=== PATIENT | female | born 1955 | race Caucasian/White ===

== ENCOUNTER → 2020-09-05 10:58 | Outpatient (BNVA) | payer MEDICARE, BC, SELFPAY | PROVIDERS: Family Provider Internal Medicine; PCP Internal Medicine; Visit Provider Internal Medicine Rheumatology | DX: M45.9 Ankylosing spondylitis of unspecified sites in spine (principal); M19.90 Unspecified osteoarthritis, unspecified site; Z11.59 Encounter for screening for other viral diseases; Z11.1 Encounter for screening for respiratory tuberculosis; Z79.899 Other long term (current) drug therapy; M46.90 Unspecified inflammatory spondylopathy, site unspecified | CPT/HCPCS: 36415; 71046; 72040; 72170; 73130; 73630; 80076; 82306; 82565; 85025; 85651; 86140; 86431; 86480; 86704; 86803; 86812; 87340; 99204 ==

== ENCOUNTER 2020-09-05 13:18 | Outpatient (CLI) | payer MEDICARE, BC, SELFPAY ==
--- NOTE | 2020-09-05 13:29 | XR_ITS ---
WS: [id number] Chest 2 views, 09/05/2020 Clinical Data: Z79.899 - Other terminal carman (current) drug therapy Comparison: PA and lateral chest, 04/19/2008. Findings: No nodules, masses or effusions are seen. The heart is normal. The pulmonary vascularity is not increased. No pneumonia or pneumothorax is seen. The aortic arch and descending aorta show minim al tortuosity. XR/XR chest 2V* [id number] Impression: Atherosclerosis.
--- NOTE | 2020-09-05 13:29 | XR_ITS ---
WS: [id number] Cervical spine, 4 views, 09/05/2020 Clinical Data: Z79.899 - Other halfway (current) drug therapy Comparison: None. Findings: No compression fractures are seen. There is degenerative disc narrowing at C5-C6 with anter ior osteophyte formation. No subluxation is seen. There is no prevertebral soft tissue swelling. The odontoid is unremarkable. The soft tissues of the neck and the lung apices are normal. XR/XR cervical spine 3V* [id number] Impression: Degenerative disc narrowing with osteophytes at C5-C6.
--- NOTE | 2020-09-05 13:29 | XR_ITS ---
WS: [id number] Pelvis, AP view, 09/05/2020 Clinical Data: Z79.899 - Other correction (current) drug therapy Comparison: None. Findings: No fractures or dislocations are seen. The SI joints and pubic symphysis are intact. The soft tissues are not remarkable. The hips are normal. The bladder is partly full. There is fecal material in the ascending colon and t he sigmoid colon. XR/XR pelvis 1-2V* 03915 Impression: Negative pelvis.
--- NOTE | 2020-09-05 13:29 | XR_ITS ---
WS: [id number] Right hand, 3 views, 09/05/2020 Clinical Data: Z79.899 - Other longterm (current) drug therapy Comparison: None. Findings: No fractures or dislocations are seen. The soft tissues are unremarkable. There is osteoa rthritis at the base of the right first metacarpal. There is osteoarthritis at the right hand first I P joint. No periarticular demineralization or calcifications are seen. XR/XR hand RT min 3V* [id number] Impression: Osteoarthritis of the base of the right first metacarpal and right first IP felipa turcios.
--- NOTE | 2020-09-05 13:29 | XR_ITS ---
WS: [id number] Right foot, 3 views, 09/05/2020 Clinical Data: Z79.899 - Other longterm (current) drug therapy Comparison: None. Findings: No fractures or dislocations are seen. No bone destruction or erosion is noted. There is a small buni on at the head of the right first metatarsal. No periarticular demineralization or calcifications are seen. There is an Achilles spur. XR/XR foot RT min 3V* [id number] Impression: Small bunion at the head of right first metatarsal.
--- NOTE | 2020-09-05 13:29 | XR_ITS ---
WS: [id number] Left hand, 3 views, 09/05/2020 Clinical Data: Z79.899 - Other custodial (current) drug therapy Comparison: Left hand, 10/24/2017. Findings: No fractures or dislocations are seen. The soft tissues are unremarkable. There is osteoarthritic aiyana nge at the base of the left first metacarpal.No periarticular demineralization or calcifications are seen. XR/XR hand LT min 3V* [id number] Impression: Osteoarthritis at the base of the left first metacarpal.
[2020-09-05 14:18] LABS: Basophils # 0.1 10^3/uL (0.0-0.1); Basophils % 0.9 %; Eosinophils # 0.1 10^3/uL (0.0-0.8); Eosinophils % 1.4 %; Hematocrit 44.2 % (37.0-47.0); Hemoglobin 14.4 g/dL (11.5-15.3); Lymphocytes # 3.6 10^3/uL (0.8-4.8); Lymphocytes % 41.1 %; Mean Corpuscular HGB Conc 32.6 g/dL (30.0-36.0); Mean Corpuscular Hemoglobin 30.5 pg (28.0-34.0); Mean Corpuscular Volume 93.6 fL (81-99); Mean Platelet Volume 10.2 fL (7.4-10.4); Monocytes # 0.6 10^3/uL (0.2-0.9); Monocytes % 6.6 %; Neutrophils # 4.33 10^3/uL (1.8-7.7); Neutrophils % 49.7 %; Nucleated Red Blood Cells % 0 %; Platelet Count 302 10^3/cmm (130-400); Red Blood Count 4.72 10^6/uL (4.1-5.3); Red Cell Distribution Width 12.7 % (12.1-15.1); White Blood Count 8.7 10^3/uL (4.0-10.0)
[2020-09-05 14:35] LABS: 25 Hydroxy Vitamin D 33 ng/mL (30-100); Alanine Aminotransferase 32 U/L (0-33); Albumin Level 4.4 g/dL (3.5-5.2); Alkaline Phosphatase 97 IU/L (35-105); Aspartate Amino Transferase 25 U/L (0-32); C Reactive Protein 3.2 mg/L (0.0-4.9); Globulin 2.6 g/dL (1.3-4.6); Glomerular Filtration Rate 83.7 mL/min (90-130); Total Bilirubin 0.3 mg/dL (0.15-1.2)
[2020-09-05 14:56] LABS: Hepatitis B Core AB, Total Non-Reactive (Nonreactive); Hepatitis B Surface Antigen Non-Reactive (Nonreactive); Hepatitis C Virus Antibody Non-Reactive (Nonreactive)
[2020-09-05 15:01] LABS: Erythrocyte Sedimentation Rate 18 mm/hr (0-15)
[2020-09-06 12:33] LABS: Cyclic Citrullinated Peptide <16 UNITS
[2020-09-08 16:08] LABS: HLA-B27 POSITIVE (NEGATIVE)
[2020-09-17 09:26] LABS: Quantiferon Mitogen 9.68
[2020-09-17 09:27] LABS: Quantiferon Nil 0.04; Quantiferon Plus TB1 0.59; Quantiferon TB Gold POSITIVE
== END 2020-09-05 13:19 | disposition home or self-care (01) ==
PROVIDERS: PCP Internal Medicine; Visit Provider Internal Medicine Rheumatology
DX: M02.30 Reiter's disease, unspecified site (principal); Z79.899 Other long term (current) drug therapy; Z11.59 Encounter for screening for other viral diseases
CPT/HCPCS: 36415; 71046; 72040; 72170; 73130; 73630; 80076; 82306; 82565; 85025; 85651; 86140; 86431; 86480; 86704; 86803; 86812; 87340

== ENCOUNTER 2020-09-23 16:11 | Outpatient (CLI) | payer MEDICARE, BC, SELFPAY ==
--- NOTE | 2020-09-23 16:23 | XRR_ITS ---
PROCEDURE INFORMATION: Exam: XR Chest Exam date and time: 09/23/2020 4:31 PM Age: 64 years old Clinical indication: Abnormal findings; Positive tb skin testing; Additional info: R76.11 - nonspecific reaction to tuberculin skin test without active tuberculosis TECHNIQUE: Imaging protocol: XR of the chest Views: 2 views. Total images: 2 COMPARISON: CR XR chest 2V* [id number] 09/05/2020 1:54 PM FINDINGS: Lungs: No visible active interstitial or alveolar airspace disease. No radiographic evidence of active TB. Pleural spaces: Unremarkable. No pleural effusion. No pneumothorax. Heart/Mediastinum: Unremarkable. No cardiomegaly. Bones/joints: Unremarkable. XR/XR chest 2V* [id number] IMPRESSION: No radiographic evidence of active cardiopulmonary process.
== END 2020-09-23 16:12 | disposition home or self-care (01) ==
LOC: RAD 16:18
PROVIDERS: PCP Internal Medicine; Visit Provider Internal Medicine
DX: R76.11 Nonspecific reaction to tuberculin skin test without active tuberculosis (principal)
CPT/HCPCS: 71046

== ENCOUNTER → 2021-01-02 14:08 | Outpatient (BNVA) | payer MEDICARE, BC, SELFPAY | PROVIDERS: PCP Internal Medicine; Visit Provider Nurse Practitioner Family | DX: Z20.822 Contact with and (suspected) exposure to COVID-19 (principal); R50.9 Fever, unspecified; J06.9 Acute upper respiratory infection, unspecified | CPT/HCPCS: 87426 ==

== ENCOUNTER 2021-01-04 02:32 | Inpatient (IN) | payer MEDICARE, BC, SELFPAY ==
[2021-01-04] VITALS (14 sets, daily range): BP systolic 115–164; BP diastolic 64–104; PULSE 78–119; RESP 18–22; TEMP 37.2–38.4; O2SAT 91–95; BMI 33.4
--- NOTE | 2021-01-04 03:06 | XRR_ITS ---
PROCEDURE INFORMATION: Exam: XR Chest Exam date and time: 01/04/2021 3:06 AM Age: 65 years old Clinical indication: Cough and fever and shortness of breath; Patient HX: Cough, SOB, and fever. TECHNIQUE: Imaging protocol: XR of the chest. Views: 1 view. COMPARISON: CR XR chest 2V* [id number] 09/23/2020 4:39 PM FINDINGS: Lungs: There are increased interstitial markings seen in the mid and lower hemithoraces bilaterally, findings suggesting a bilateral interstitial pneumonia. Pleural spaces: Unremarkable. No pleural effusion. No pneumothorax. Heart/Mediastinum: Unremarkable. No cardiomegaly. Bones/joints: Unremarkable. XR/XR chest 1V portable [id number] IMPRESSION: Increased interstitial markings seen in the lower hemithoraces bilaterally, findings suggesting a bilateral interstitial pneumonia.
--- NOTE | 2021-01-04 03:06 | ECG_ITS ---
[facility] Test Date: 2021-01-04 Pat Name: Beatriz Cevallos Department: Room: Gender: Female It Systems Engineer: : 1955 Requested By: Raphael Coates Order Number: [id number] Shae MD: Kavin Garcia M.D. Measurements Intervals [place] Rate: 114 P: 53 [place]: 112 QRS: 73 QRSD: 90 T: 23 QT: 314 QTc: 433 Interpretive Statements SINUS TACHYCARDIA WITH SHORT [place] INTERVAL No previous ECG available for comparison Electronically Signed On 01-05-2021 17:15:36 CDT by Kavin Garcia M.D. [email or web address] specialty [id number]
--- NOTE | 2021-01-04 03:14 | ED_ITS ---
HPI - COVID General: Chief Complaint: COVID symptoms Stated Complaint: Coughing\Fever\Diar\Dizzy\Ringing in Ears Time Seen by Provider: 01/04/21 02:36 Source: patient Mode of arrival: ambulatory Limitations: no limitations Triage information: Has fever, cough or shortness of breath . No known COVID + exposure last 14 days History of Present Illness: HPI Narrative: 65-year-old female states that over the last 4 to 5 days has been having body aches cough dyspnea diarrhea and abdominal pain. States she is also had fevers and is febrile here at 101. She states she was seen 2 days ago and started on Levaquin and steroids for an upper respiratory infection. She had a negative Covid test at that time. She states that she has been feeling worse since then though. She denies any vomiting. She states that she has has full body aches and her fevers just keep returning. She did have a Covid vaccine has had no known sick contacts. COVID 19 common symptoms: positive fever(s), chills, non-productive cough, body aches and diarrhea; negative headache(s) or throat pain COVID 19 other sytmptoms: negative chest pain COVID Results: SARS-CoV-2 Antigen (Rapid) Negative (Negative) 01/04/21 03:30 01/04/21 Review of Systems Const: Reports: fever(s), chills and body aches Eyes: Denies: blurry vision or eye discomfort ENMT: Denies: throat pain or dental pain Card: Denies: chest pain Resp: Reports: non-productive cough GI: Reports: abdominal pain and diarrhea : Denies: dysuria Musc: Denies: neck pain or back pain Skin/Breast: Denies: rash Neuro: Denies: headache(s) Psych: Denies: depression Sarbjit/Lymph: Denies: easy bruising All/Imm: Denies: urticaria PFSH ED PFSH: Medical History Abnormal glucose level Axial spondyloarthritis Chronic elbow pain Chronic osteoarthritis Fibromyalgia GERD (gastroesophageal reflux disease) High risk medication use High risk medication use Hyperlipidemia IBS (irritable bowel syndrome) Immunization counseling Inflammatory arthritis Insulin resistance Joint pain Reactive arthritis Omero's disease Sciatica, right side Surgical History S/P cholecystectomy S/P hysterectomy Family History Father Diabetes Mother Diabetes Cancer Other Arthritis Hypertension Lung disease Rheumatoid arthritis Denies family history of Lupus Social History Smoking and tobacco status: never smoked Second hand smoke exposure: No Alcohol intake: current Alcohol intake frequency: holidays/special occasions only Physical Exam Const: COMMON NORMALS: no acute distress, patient oriented x3 and healthy appearing HENMT: COMMON NORMALS: normocephalic and atraumatic HEAD & SCALP: normocephalic and atraumatic Eye: COMMON NORMALS: Equal, round and reactive pupils present and EOMs intact bilaterally PUPIL: Yes Equal, round and reactive pupils present Neck/C-Spine: COMMON NORMALS: full ROM and supple Chest: COMMONS NORMALS: normal inspection of the chest and normal palpation of entire chest wall Resp: COMMON NORMALS: normal respiratory effort, No retractions, No use of accessory muscles and clear to auscultation bilaterally AUSCULTATION: clear to auscultation bilaterally Cardio: COMMON NORMALS: regular rhythm and No murmurs present (Cardio) RATE: tachycardic RHYTHM: regular rhythm GI: COMMON NORMALS: Normal to inspection, nondistended, normoactive bowel sounds present, Soft to palpation, non-tender and no masses PALPATION: Yes Soft to palpation Extremity: COMMON NORMALS: normal to inspection and full ROM Neuro: COMMON NORMALS: patient oriented x3, moves all extremities and no focal motor deficits Psych: COMMON NORMALS: mental status grossly normal, Normal thought process present and cooperative THOUGHT PROCESS: Normal thought process present Skin: COMMON NORMALS: no rashes or lesions noted and no wounds GENERAL SKIN EXAM: no rashes or lesions noted Course Vital Signs: Vital signs: Vital Signs Temperature 100.6 F H 01/04/21 04:29 Pulse Rate 97 01/04/21 04:29 Respiratory Rate 19 H 01/04/21 04:29 Blood Pressure 134/94 01/04/21 04:29 Pulse Oximetry 94 01/04/21 04:29 MDM - COVID MDM Narrative: Medical decision making narrative: Patient presents here with fever along with cough. Her CT scan showed bilateral lower lobe pneumonia along with her chest x-ray. Her Covid is negative again. Patient has been on outpatient antibiotics with no improvement. She states that she feels extremely weak. She states she feels like she cannot go home at this time due to her weakness. Spoke to hospitalist will admit for observation for more fluid ministration IV antibiotics. Lab Data: Labs: Lab Results 01/04/21 01/04/21 01/04/21 Range/Units 03:10 03:10 03:10 WBC 10.2 H (4.0-10.0) 10^3/ uL RBC 4.86 (4.1-5.3) 10^6/u L Hgb 14.6 (11.5-15.3) g/dL Hct 46.0 (37.0-47.0) % MCV 94.7 (81-99) fL MCH 30.0 (28.0-34.0) pg MCHC 31.7 (30.0-36.0) g/dL RDW 12.9 (12.1-15.1) % Plt Count 222 (130-400) 10^3/c mm MPV 10.5 H (7.4-10.4) fL Neut % (Auto) 71.2 % Lymph % (Auto) 22.2 % Barrow % (Auto) 5.5 % Eos % (Auto) 0.1 % Baso % (Auto) 0.2 % Neut # (Auto) 7.27 (1.8-7.7) 10^3/u L Lymph # (Auto) 2.3 (0.8-4.8) 10^3/u L B[place] # (Auto) 0.6 (0.2-0.9) 10^3/u L Eos # (Auto) 0.0 (0.0-0.8) 10^3/u L Baso # (Auto) 0.0 (0.0-0.1) 10^3/u L Nucleated RBC % (a uto) 0 % Nucleated RBCs # 0.0 /100WBC Sodium 138 (136-145) mmol/L Potassium 4.0 (3.5-5.1) mmol/L Chloride 102 (98-107) mmol/L Carbon Dioxide 23 (22-29) mmol/L Anion Gap 17.0 (5-19) BUN 12 (8-23) mg/dL Creatinine 0.8 (0.5-0.9) mg/dL GFR Calculation 71.5 L (90-130) mL/min Glucose 109 (65-115) mg/dL Calculated Osmolal ity 286 (285-295) mOsm/k g Lactic Acid 0.7 (0.5-2.2) mmol/L Calcium 9.1 (8.5-10.5) mg/dL Total Bilirubin 0.3 (0.15-1.2) mg/dL AST 19 (0-32) U/L ALT 25 (0-33) U/L Alkaline Phosphata se 106 H (35-105) IU/L C-Reactive Protein 32.7 H (0.0-4.9) mg/L NT-Pro-B Natriuret Pep 48 (0-125) pg/mL Total Protein 6.2 L (6.6-8.7) g/dL Albumin 4.1 (3.5-5.2) g/dL Globulin 2.1 (1.3-4.6) g/dL Urine Color (Yellow) Urine Appearance (CLEAR) Urine pH (5-7) Ur Specific Gravit y (1.005-1.030) Urine Protein (Negative) Urine Glucose (UA) (Normal) Urine Ketones (Negative) Urine Blood (Negative) Urine Nitrate (Negative) Urine Bilirubin (Negative) Urine Urobilinogen (Negative) mg/dL Ur Leukocyte Kathia ase (Negative) Urine RBC (0-2) /hpf Urine WBC (0-5) /hpf Ur Squamous Epith Cells (0-5) /hpf Amorphous Sediment Urine Bacteria (NONE) /hpf Urine Mucus /hpf SARS-CoV-2 Ag (Rap id) (Negative) 01/04/21 01/04/21 Range/Units 03:30 03:30 WBC (4.0-10.0) 10^3/ uL RBC (4.1-5.3) 10^6/u L Hgb (11.5-15.3) g/dL Hct (37.0-47.0) % MCV (81-99) fL MCH (28.0-34.0) pg MCHC (30.0-36.0) g/dL RDW (12.1-15.1) % Plt Count (130-400) 10^3/c mm MPV (7.4-10.4) fL Neut % (Auto) % Lymph % (Auto) % Barrow % (Auto) % Eos % (Auto) % Baso % (Auto) % Neut # (Auto) (1.8-7.7) 10^3/u L Lymph # (Auto) (0.8-4.8) 10^3/u L Barrow # (Auto) (0.2-0.9) 10^3/u L Eos # (Auto) (0.0-0.8) 10^3/u L Baso # (Auto) (0.0-0.1) 10^3/u L Nucleated RBC % (a uto) % Nucleated RBCs # /100WBC Sodium (136-145) mmol/L Potassium (3.5-5.1) mmol/L Chloride (98-107) mmol/L Carbon Dioxide (22-29) mmol/L Anion Gap (5-19) BUN (8-23) mg/dL Creatinine (0.5-0.9) mg/dL GFR Calculation (90-130) mL/min Glucose (65-115) mg/dL Calculated Osmolal ity (285-295) mOsm/k g Lactic Acid (0.5-2.2) mmol/L Calcium (8.5-10.5) mg/dL Total Bilirubin (0.15-1.2) mg/dL AST (0-32) U/L ALT (0-33) U/L Alkaline Phosphata se (35-105) IU/L C-Reactive Protein (0.0-4.9) mg/L NT-Pro-B Natriuret Pep (0-125) pg/mL Total Protein (6.6-8.7) g/dL Albumin (3.5-5.2) g/dL Globulin (1.3-4.6) g/dL Urine Color Yellow (Yellow) Urine Appearance Clear (CLEAR) Urine pH 5 (5-7) Ur Specific Gravit y 1.020 (1.005-1.030) Urine Protein Trace (Negative) Urine Glucose (UA) Norm (Normal) Urine Ketones 1+ H (Negative) Urine Blood Neg (Negative) Urine Nitrate Negative (Negative) Urine Bilirubin Neg (Negative) Urine Urobilinogen 1 H (Negative) mg/dL Ur Leukocyte Kathia ase Negative (Negative) Urine RBC 0-4 H (0-2) /hpf Urine WBC 0-4 H (0-5) /hpf Ur Squamous Epith Cells 25-40 H (0-5) /hpf Amorphous Sediment Not Reportable Urine Bacteria 1+ H (NONE) /hpf Urine Mucus 3+ /hpf SARS-CoV-2 Ag (Rap id) Negative (Negative) Imaging Data: CXR: Attestation: I personally reviewed and interpreted this imaging study as follows: Radiologist's impression: [place] [address] XRay Report Signed Patient: Beatriz Cevallos Unit #: [id number] : 1955 Age/Sex: 65 / F ADM Date: 01/04/21 Loc: ER Room/Bed: Attending Dr: Ordering Provider/Ordering MD: Raphael Coates MD Date of Service: 01/04/21 Procedure(s): XR chest 1V portable [id number] Accession Number(s): [id number] Report Number: [id number] PROCEDURE INFORMATION: Exam: XR Chest Exam date and time: 01/04/2021 3:06 AM Age: 65 years old Clinical indication: Cough and fever and shortness of breath; Patient HX: Cough, SOB, and fever. TECHNIQUE: Imaging protocol: XR of the chest. Views: 1 view. COMPARISON: CR XR chest 2V* [id number] 09/23/2020 4:39 PM FINDINGS: Lungs: There are increased interstitial markings seen in the mid and lower hemithoraces bilaterally, findings suggesting a bilateral interstitial pneumonia. Pleural spaces: Unremarkable. No pleural effusion. No pneumothorax. Heart/Mediastinum: Unremarkable. No cardiomegaly. Bones/joints: Unremarkable. XR/XR chest 1V portable [id number] IMPRESSION: Increased interstitial markings seen in the lower hemithoraces bilaterally, findings suggesting a bilateral interstitial pneumonia. CT Abd/Pel: Radiologist's impression: [address] [place] [address] CT Scan Report Signed Patient: Beatriz Cevallos Unit #: [id number] : 1955 Age/Sex: 65 / F ADM Date: 01/04/21 Loc: ER Room/Bed: Attending Dr: Ordering Provider/Ordering MD: Raphael Coates MD Date of Service: 01/04/21 Procedure(s): CT abdomen pelvis w con* [id number] Accession Number(s): [id number] Report Number: [id number] PROCEDURE INFORMATION: Exam: CT Abdomen And Pelvis With Contrast Exam date and time: 01/04/2021 4:00 AM Age: 65 years old Clinical indication: Abdominal pain; Prior surgery; Surgery type: Gb; Patient HX: Diffuse abd pain. Positve bacteria on ua. TECHNIQUE: Imaging protocol: Computed tomography of the abdomen and pelvis with contrast. Radiation optimization: All CT scans at this facility use at least one of these dose optimization techniques: automated exposure control; mA and/or kV adjustment per patient size (includes targeted exams where dose is matched to clinical indication); or iterative reconstruction. Contrast material: OMNI 300; Contrast volume: 95 ml; Contrast route: INTRAVENOUS (IV); COMPARISON: CR XR pelvis 1-2V* [id number] 09/05/2020 2:29 PM RADIATION DOSE METRICS: Total DLP (mGy-cm): 1805.59 FINDINGS: Lungs: There are patchy peripheral ground-glass opacities present within the visualized hemithoraces, findings suggesting a bilateral patchy interstitial pneumonia. Liver: There is mild hypoattenuation of the hepatic parenchyma compatible with fatty infiltration. Gallbladder and bile ducts: Status post cholecystectomy. Pancreas: Normal. No ductal dilation. Spleen: Normal. No splenomegaly. Adrenal glands: Normal. No mass. Kidneys and ureters: Normal. No hydronephrosis. Stomach and bowel: Diverticula present the descending and sigmoid colon. There are no inflammatory changes present to suggest diverticulitis. Appendix: No evidence of appendicitis. Intraperitoneal space: Unremarkable. No free air. No significant fluid collection. Vasculature: Unremarkable. No abdominal aortic aneurysm. Lymph nodes: Unremarkable. No enlarged lymph nodes. Urinary bladder: There is some subtle haziness seen along the serosal margin of bladder, findings that could represent mild inflammatory changes and cystitis although the bladder is nondistended. Reproductive: There is a 3.3 x 2.1 x 3.6 cm hypoattenuation cystic mass seen along the left pelvic sidewall likely representing a benign left ovarian cyst. Status post hysterectomy. Bones/joints: Unremarkable. No acute fracture. Soft tissues: Unremarkable. CT/CT abdomen pelvis w con* [id number] IMPRESSION: 1. There are no acute abdominal findings. 2. Fatty infiltration of the liver 3. Subtle haziness seen along the serosal margin of the bladder could represent mild inflammatory changes and cystitis although the bladder is nondistended. 4. Diverticulosis of the descending and sigmoid colon 5. Benign cystic mass within the left ovary measuring up to 3.6 cm. No further workup needed. 6. Patchy peripheral ground-glass opacities present in the visualized hemithoraces, findings that suggest a bilateral patchy interstitial pneumonia.Commonly reported imaging features of COVID-19 pneumonia are present. Other processes such as influenza pneumonia and organizing pneumonia, as can be seen with drug toxicity and connective tissue disease, can cause a similar imaging pattern. (Reference: Pio) REFERENCES: Pio Montero, et al., Radiological Society of [place] Expert Consensus Statement on Reporting Chest CT Findings Related to COVID-19. Endorsed by the Society of Thoracic Radiology, the [place] [employer], and RSNA. Published September 20, 2019. Radiation Dose CTDIVOL = (mGy): DLP = 1805.59 (mGy-cm) Dictated By: Gildardo Means MD Signed By: Gildardo Means MD Signed Date/Time: 01/04/21 0501 EKG Data: EKG 1: Attestation: I personally reviewed and interpreted this EKG as follows: EKG interpretation date: 01/04/21 EKG interpretation time: 03:29 Interpretation: Sinus tachycardia heart rate [address] or T wave abnormalities QRS 90 QTC 381 COVID Results: SARS-CoV-2 Antigen (Rapid) Negative (Negative) 01/04/21 03:30 01/04/21 Discharge Plan Discharge Patient Disposition: Placed in Observation Clinical Impression: Pneumonia Qualifiers: Pneumonia type: due to unspecified organism Laterality: bilateral Lung location: lower lobe of lung Qualified Code(s): J18.9 - Pneumonia, unspecified organism Coding Level of Care Code ED [employer] [facility] for [facility] Fwd Exam Comprehensive
[2021-01-04 03:19] LABS: Basophils % 0.2 %; Eosinophils % 0.1 %; Hemoglobin 14.6 g/dL (11.5-15.3); Lymphocytes # 2.3 10^3/uL (0.8-4.8); Lymphocytes % 22.2 %; Mean Corpuscular HGB Conc 31.7 g/dL (30.0-36.0); Mean Corpuscular Volume 94.7 fL (81-99); Mean Platelet Volume 10.5 fL (7.4-10.4); Monocytes # 0.6 10^3/uL (0.2-0.9); Monocytes % 5.5 %; Neutrophils # 7.27 10^3/uL (1.8-7.7); Neutrophils % 71.2 %; Nucleated Red Blood Cells % 0 %; Platelet Count 222 10^3/cmm (130-400); Red Blood Count 4.86 10^6/uL (4.1-5.3); Red Cell Distribution Width 12.9 % (12.1-15.1); White Blood Count 10.2 10^3/uL (4.0-10.0)
[2021-01-04] MEDS: sodium chloride 0.9% 1,000 ML 999 ML IV ×2 (03:27→04:30)
[2021-01-04] MEDS: acetaminophen 325 mg Tablet 650 MG PO ×2 (03:27→16:20)
[2021-01-04 03:37] LABS: Add Urine Microscopic? YES; Bilirubin Urine Neg (Negative); Blood Urine Neg (Negative); Glucose Urine UA Norm (Normal); Ketones Urine 1+ (Negative); Leukocyte Esterase Urine Negative (Negative); Nitrate Urine Negative (Negative); Protein Urine Trace (Negative); Urine Appearance Clear (CLEAR); Urine Color Yellow (Yellow); Urobilinogen Urine 1 mg/dL (Negative); pH Urine 5 (5-7)
[2021-01-04 03:41] LABS: Lactic Sepsis W/Reflex 0.7 mmol/L (0.5-2.2)
[2021-01-04 03:42] LABS: Bacteria Urine 1+ /hpf; Mucus Urine 3+ /hpf; RBC Urine 0-4 /hpf (0-2); Squamous Epithelial Cell Urine 25-40 /hpf (0-5); WBC Urine 0-4 /hpf (0-5)
[2021-01-04 03:43] LABS: Add Urine Culture? No
[2021-01-04 03:47] LABS: Alanine Aminotransferase 25 U/L (0-33); Albumin Level 4.1 g/dL (3.5-5.2); Alkaline Phosphatase 106 IU/L (35-105); Aspartate Amino Transferase 19 U/L (0-32); Blood Urea Nitrogen 12 mg/dL (8-23); C Reactive Protein 32.7 mg/L (0.0-4.9); Calcium 9.1 mg/dL (8.5-10.5); Carbon Dioxide 23 mmol/L (22-29); Chloride 102 mmol/L (98-107); Creatinine Clr Calc Pharmacy 84.3018; Globulin 2.1 g/dL (1.3-4.6); Glomerular Filtration Rate 71.5 mL/min (90-130); Glucose 109 mg/dL (65-115); NT Pro B Type Natriuretic Pept 48 pg/mL (0-125); Osmolality Calculated 286 mOsm/kg (285-295); Sodium 138 mmol/L (136-145); Total Bilirubin 0.3 mg/dL (0.15-1.2); Total Protein 6.2 g/dL (6.6-8.7)
[2021-01-04 03:53] LABS: SARS Covid-2 Antigen Negative (Negative)
--- NOTE | 2021-01-04 04:00 | CTR_ITS ---
PROCEDURE INFORMATION: Exam: CT Abdomen And Pelvis With Contrast Exam date and time: 01/04/2021 4:00 AM Age: 65 years old Clinical indication: Abdominal pain; Prior surgery; Surgery type: Gb; Patient HX: Diffuse abd pain. Positve bacteria on ua. TECHNIQUE: Imaging protocol: Computed tomography of the abdomen and pelvis with contrast. Radiation optimization: All CT scans at this facility use at least one of these dose optimization techniques: automated exposure control; mA and/or kV adjustment per patient size (includes targeted exams where dose is matched to clinical indication); or iterative reconstruction. Contrast material: OMNI 300; Contrast volume: 95 ml; Contrast route: INTRAVENOUS (IV); COMPARISON: CR XR pelvis 1-2V* [id number] 09/05/2020 2:29 PM RADIATION DOSE METRICS: Total DLP (mGy-cm): 1805.59 FINDINGS: Lungs: There are patchy peripheral ground-glass opacities present within the visualized hemithoraces, findings suggesting a bilateral patchy interstitial pneumonia. Liver: There is mild hypoattenuation of the hepatic parenchyma compatible with fatty infiltration. Gallbladder and bile ducts: Status post cholecystectomy. Pancreas: Normal. No ductal dilation. Spleen: Normal. No splenomegaly. Adrenal glands: Normal. No mass. Kidneys and ureters: Normal. No hydronephrosis. Stomach and bowel: Diverticula present the descending and sigmoid colon. There are no inflammatory changes present to suggest diverticulitis. Appendix: No evidence of appendicitis. Intraperitoneal space: Unremarkable. No free air. No significant fluid collection. Vasculature: Unremarkable. No abdominal aortic aneurysm. Lymph nodes: Unremarkable. No enlarged lymph nodes. Urinary bladder: There is some subtle haziness seen along the serosal margin of bladder, findings that could represent mild inflammatory changes and cystitis although the bladder is nondistended. Reproductive: There is a 3.3 x 2.1 x 3.6 cm hypoattenuation cystic mass seen along the left pelvic sidewall likely representing a benign left ovarian cyst. Status post hysterectomy. Bones/joints: Unremarkable. No acute fracture. Soft tissues: Unremarkable. CT/CT abdomen pelvis w con* [id number] IMPRESSION: 1. There are no acute abdominal findings. 2. Fatty infiltration of the liver 3. Subtle haziness seen along the serosal margin of the bladder could represent mild inflammatory changes and cystitis although the bladder is nondistended. 4. Diverticulosis of the descending and sigmoid colon 5. Benign cystic mass within the left ovary measuring up to 3.6 cm. No further workup needed. 6. Patchy peripheral ground-glass opacities present in the visualized hemithoraces, findings that suggest a bilateral patchy interstitial pneumonia.Commonly reported imaging features of COVID-19 pneumonia are present. Other processes such as influenza pneumonia and organizing pneumonia, as can be seen with drug toxicity and connective tissue disease, can cause a similar imaging pattern. (Reference: Pio) REFERENCES: Pio Montero, et al., Radiological Society of [place] Expert Consensus Statement on Reporting Chest CT Findings Related to COVID-19. Endorsed by the Society of Thoracic Radiology, the [place] [employer], and RSNA. Published September 20, 2019. Radiation Dose CTDIVOL = (mGy): DLP = 1805.59 (mGy-cm)
[2021-01-04] MEDS: iohexol 300 mg/mL 100 mL Btl IV (04:20)
[2021-01-04] MEDS: levofloxacin-dextrose 5 % 750 MG/150 ML PREMIX 100 MG IV (05:21)
--- NOTE | 2021-01-04 07:28 | PM.HP ---
Providers/Chief Complaint Admitting Physician: Paige Beach MD Primary Care Provider: Derick Cevallos MD Chief Complaint: Coughing\Fever\Diar\Dizzy\Ringing in Ears History of Present Illness Beatriz Cevallos is a 65 year old female with persistent fever and malaise. She has not felt well for about a week. She had traveled to [place] and her symptoms started. She has had cough, runny nose, earache, dizziness and fever. Cough has not been productive. Her eyes have been irritated and bloodshot. She has not been able to sleep well. Has not had any type of an appetite. She has had multiple episodes of diarrhea but denies any vomiting or nausea. Denies headache or stiff neck. No known sick contacts. She was vaccinated for Covid with Moderna x2 doses. No known Covid contacts. She was seen at internal medicine clinic on January 02. Diagnosed with upper respiratory and ear infection and given prednisone and Levaquin. She has taken 2 doses without any improvement. She continued to feel worse and her fever was not resolving so she came to the emergency room to be evaluated further. Work-up revealed an elevated CRP, slight elevation in white count as well as CT and chest x-ray findings suggestive of bilateral lower lobe pneumonia. Oxygen saturations were okay as were her heart rate and blood pressure. Given failure of outpatient management, progressive weakness and concern for worsening symptoms if she went home, she is being admitted for further treatment and monitoring. 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 She is on Celebrex. Not currently on any biologic agents or immunosuppressive agents due to latent TB that has not yet been treated. She has been seen by Dr. Solis and plan is to eventually start treatment for 4 months. She has not had any weight loss. Denies any hemoptysis. No cavitary abnormalities identified on chest x-ray or CT of the abdomen done in the emergency room. Rapid Covid test in the emergency room was negative. Review of Systems Const: Reports: fever(s), chills, body aches, change in appetite, fatigue, malaise and change in sleep pattern; Denies: change in weight Eyes: Reports: change in vision and eye redness ENMT: Reports: hoarseness, ear or mastoid pain, change in hearing, disequilibrium, nasal congestion, post nasal drip and sinus pain; Denies: throat pain or odynophagia Card: Reports: chest pain (Chest wall is tender from coughing); Denies: palpitations, edema, orthopnea or acrocyanosis Resp: Reports: dyspnea, non-productive cough and chest congestion; Denies: productive cough, pain on inspiration or hemoptysis GI: Reports: diarrhea; Denies: abdominal pain, nausea, vomiting or constipation : Denies: difficulty voiding Musc: Reports: back pain, extremity pain and muscle weakness; Denies: neck pain, joint redness or joint warmth Skin/Breast: Denies: rash or sores Neuro: Denies: headache(s), numbness in extremities or weakness in extremities Sarbjit/Lymph: Denies: easy bruising or easy bleeding Medications/Allergies Home Medications Medication Instructions Recorded Confirmed Last Taken Type ondansetron HCl 4 mg tablet 4 mg PO Q6H 06/26/19 01/02/21 Unknown History fluticasone propionate 50 1 spray INTRANASAL BID #15.8 ml 07/10/19 01/02/21 Unknown Rx mcg/actuation nasal spray,suspension tizanidine 4 mg capsule 4 mg PO .at bedtime #90 cap 08/28/19 01/02/21 Unknown Rx alprazolam 0.5 mg tablet 0.5 mg PO BID PRN #30 tab 01/25/20 01/02/21 Unknown Rx celecoxib 400 mg capsule 400 mg PO BID #60 cap 03/21/20 01/02/21 Unknown Rx tizanidine 4 mg tablet 4 mg PO .at bedtime PRN #90 tab 07/09/20 01/02/21 Unknown Rx dexlansoprazole 60 mg 60 mg PO DAILY #90 cap 08/16/20 01/02/21 Unknown Rx capsule,biphase delayed release desvenlafaxine succinate 100 mg 100 mg PO DAILY #30 tab 10/28/20 01/02/21 Unknown Rx tablet,extended release 24 hr acetaminophen 325 mg tablet 650 mg PO QID PRN #30 tab 01/02/21 01/02/21 Unknown Rx levofloxacin 750 mg tablet 750 mg PO DAILY 7 Days #7 tab 01/02/21 01/02/21 Unknown Rx prednisone 20 mg tablet 20 mg PO DAILY #5 tab 01/02/21 01/02/21 Unknown Rx Allergies Allergy/AdvReac Type Severity Reaction Status Date / Time No Known Allergies Allergy Verified 01/02/21 14:13 PFSH Acute PFSH: Medical History (Updated 01/04/21 @ 08:27 by Paige Beach MD) Axial spondyloarthritis Chronic elbow pain Chronic osteoarthritis Fibromyalgia GERD (gastroesophageal reflux disease) High risk medication use Hyperlipidemia IBS (irritable bowel syndrome) Inflammatory arthritis Insulin resistance Reactive arthritis Omero's disease Sciatica, right side Surgical History S/P cholecystectomy S/P hysterectomy Family History Father Diabetes Mother Diabetes Cancer Other Arthritis Hypertension Lung disease Rheumatoid arthritis Denies family history of Lupus Social History Smoking and tobacco status: never smoked Second hand smoke exposure: No Alcohol intake: current Alcohol intake frequency: holidays/special occasions only Vitals/I&O/Wt Last Vital Signs Temp 100.5 F H 01/04/21 06:36 Pulse 92 01/04/21 06:36 Resp 18 01/04/21 06:36 BP 143/84 01/04/21 06:36 Pulse Ox 93 01/04/21 06:36 01/03/21 01/04/21 01/04/21 22:59 06:59 14:59 Intake Total 1000 / 1000 Balance 1000 / 1000 Weight last 48 hrs Weight 99.79 kg Physical Exam Narrative: EXAM NARRATIVE: Constitutional: Awake and alert, provides history, looks like she does not feel well HEENT: Normocephalic, atraumatic, no palpable abnormalities mastoid area, facial tenderness is noted particularly in maxillary areas, face is flushed, conjunctive are injected, nasopharynx with clear rhinorrhea, oropharynx with dry mucous membranes, no erythema Neck: Supple Respiratory: Coarse breath sounds with upper airway noise, crackles at bases, no wheezes Cardiovascular: Regular rhythm, no murmurs or rubs Abdomen: Soft, nontender, positive bowel sounds Extremities: No pitting edema, no acutely tender joints Skin: Dry, no acute rashes, petechia or bruises Neuro: Speech clear, face symmetric, moves all extremities Psych: Normal affect Data : 01/04/21 03:10 01/04/21 03:10 Micro: Microbiology 07/10/21 03:13 Blood Culture - Preliminary Blood SPECIMEN COLLECTED 01/04/21 03:13 Blood Culture - Preliminary Blood SPECIMEN COLLECTED Other data: Laboratory Results WBC 10.2 10^3/uL (4.0-10.0) H 01/04/21 03:10 RBC 4.86 10^6/uL (4.1-5.3) 01/04/21 03:10 Hgb 14.6 g/dL (11.5-15.3) 01/04/21 03:10 Hct 46.0 % (37.0-47.0) 01/04/21 03:10 MCV 94.7 fL (81-99) 01/04/21 03:10 MCH 30.0 pg (28.0-34.0) 01/04/21 03:10 MCHC 31.7 g/dL (30.0-36.0) 01/04/21 03:10 RDW 12.9 % (12.1-15.1) 01/04/21 03:10 Plt Count 222 10^3/cmm (130-400) 01/04/21 03:10 MPV 10.5 fL (7.4-10.4) H 01/04/21 03:10 Neut % (Auto) 71.2 % 01/04/21 03:10 Lymph % (Auto) 22.2 % 01/04/21 03:10 [place] % (Auto) 5.5 % 01/04/21 03:10 Eos % (Auto) 0.1 % 01/04/21 03:10 Baso % (Auto) 0.2 % 01/04/21 03:10 Neut # (Auto) 7.27 10^3/uL (1.8-7.7) 01/04/21 03:10 Lymph # (Auto) 2.3 10^3/uL (0.8-4.8) 01/04/21 03:10 [place] # (Auto) 0.6 10^3/uL (0.2-0.9) 01/04/21 03:10 Eos # (Auto) 0.0 10^3/uL (0.0-0.8) 01/04/21 03:10 Baso # (Auto) 0.0 10^3/uL (0.0-0.1) 01/04/21 03:10 Nucleated RBC % (auto) 0 % 01/04/21 03:10 Nucleated RBCs # 0.0 /100WBC 01/04/21 03:10 Sodium 138 mmol/L (136-145) 01/04/21 03:10 Potassium 4.0 mmol/L (3.5-5.1) 01/04/21 03:10 Chloride 102 mmol/L (98-107) 01/04/21 03:10 Carbon Dioxide 23 mmol/L (22-29) 01/04/21 03:10 Anion Gap 17.0 (5-19) 01/04/21 03:10 BUN 12 mg/dL (8-23) 01/04/21 03:10 Creatinine 0.8 mg/dL (0.5-0.9) 01/04/21 03:10 GFR Calculation 71.5 mL/min (90-130) L 01/04/21 03:10 Glucose 109 mg/dL (65-115) 01/04/21 03:10 Calculated Osmolality 286 mOsm/kg (285-295) 01/04/21 03:10 Lactic Acid 0.7 mmol/L (0.5-2.2) 01/04/21 03:10 Calcium 9.1 mg/dL (8.5-10.5) 01/04/21 03:10 Total Bilirubin 0.3 mg/dL (0.15-1.2) 01/04/21 03:10 AST 19 U/L (0-32) 01/04/21 03:10 ALT 25 U/L (0-33) 01/04/21 03:10 Alkaline Phosphatase 106 IU/L (35-105) H 01/04/21 03:10 C-Reactive Protein 32.7 mg/L (0.0-4.9) H 01/04/21 03:10 NT-Pro-B Natriuret Pep 48 pg/mL (0-125) 01/04/21 03:10 Total Protein 6.2 g/dL (6.6-8.7) L 01/04/21 03:10 Albumin 4.1 g/dL (3.5-5.2) 01/04/21 03:10 Globulin 2.1 g/dL (1.3-4.6) 01/04/21 03:10 Urine Color Yellow (Yellow) 01/04/21 03:30 Urine Appearance Clear (CLEAR) 01/04/21 03:30 Urine pH 5 (5-7) 01/04/21 03:30 Ur Specific [place] 1.020 (1.005-1.030) 01/04/21 03:30 Urine Protein Trace (Negative) 01/04/21 03:30 Urine Glucose (UA) Norm (Normal) 01/04/21 03:30 Urine Ketones 1+ (Negative) H 01/04/21 03:30 Urine Blood Neg (Negative) 01/04/21 03:30 Urine Nitrate Negative (Negative) 01/04/21 03:30 Urine Bilirubin Neg (Negative) 01/04/21 03:30 Urine Urobilinogen 1 mg/dL (Negative) H 01/04/21 03:30 Ur Leukocyte Esterase Negative (Negative) 01/04/21 03:30 Urine RBC 0-4 /hpf (0-2) H 01/04/21 03:30 Urine WBC 0-4 /hpf (0-5) H 01/04/21 03:30 Ur Squamous Epith Cells 25-40 /hpf (0-5) H 01/04/21 03:30 Amorphous Sediment Not Reportable 01/04/21 03:30 Urine Bacteria 1+ /hpf (NONE) H 01/04/21 03:30 Urine Mucus 3+ /hpf 01/04/21 03:30 SARS-CoV-2 Ag (Rapid) Negative (Negative) 01/04/21 03:30 Impressions Chest X-Ray 01/04/21 03:06 IMPRESSION: Increased interstitial markings seen in the lower hemithoraces bilaterally, findings suggesting a bilateral interstitial pneumonia. Abdomen/Pelvis CT 01/04/21 04:00 IMPRESSION: 1. There are no acute abdominal findings. 2. Fatty infiltration of the liver 3. Subtle haziness seen along the serosal margin of the bladder could represent mild inflammatory changes and cystitis although the bladder is nondistended. 4. Diverticulosis of the descending and sigmoid colon 5. Benign cystic mass within the left ovary measuring up to 3.6 cm. No further workup needed. 6. Patchy peripheral ground-glass opacities present in the visualized hemithoraces, findings that suggest a bilateral patchy interstitial pneumonia.Commonly reported imaging features of COVID-19 pneumonia are present. Other processes such as influenza pneumonia and organizing pneumonia, as can be seen with drug toxicity and connective tissue disease, can cause a similar imaging pattern. (Reference: Pio) REFERENCES: Pio Montero, et al., Radiological Society of [place] Expert Consensus Statement on Reporting Chest CT Findings Related to COVID-19. Endorsed by the Society of Thoracic Radiology, the [employer] [place] [employer], and RSNA. Published September 20, 2019. Radiation Dose CTDIVOL = (mGy): DLP = 1805.59 (mGy-cm) A&P Assessment and plan (1) Upper respiratory infection with cough and congestion: Status: Acute (2) Community acquired pneumonia: Status: Acute Qualifiers: Laterality: unspecified laterality Qualified Code(s): J18.9 - Pneumonia, unspecified organism (3) Latent tuberculosis: Status: Chronic (4) Reactive arthritis: Status: Chronic (5) IBS (irritable bowel syndrome): Status: Chronic Qualifiers: Irritable bowel syndrome type: with both diarrhea and constipation Qualified Code(s): K58.2 - Mixed irritable bowel syndrome (6) GERD (gastroesophageal reflux disease): Status: Chronic Qualifiers: Esophagitis presence: without esophagitis Qualified Code(s): K21.9 - Gastro-esophageal reflux disease without esophagitis Additional A&P Information Observation admission for now Change antibiotics to Rocephin and azithromycin Send Covid PCR, Covid isolation Check influenza screen and bacterial antigens Continue prednisone Add Flonase and nasal saline IV fluids Follow-up pending blood cultures Clinically does not describe classic symptoms of TB and current presentation is more suggestive of upper respiratory source of infection leading to pneumonia, viral versus bacterial. Continue home Celebrex Continue PPI from home Add probiotics Supportive care otherwise Lovenox for DVT prophylaxis Anticipate discharge home with outpatient follow-up Findings, concerns and plans were discussed with patient and she was given an opportunity to ask questions Full code Attestations Medical Necessity Statement*: Anticipated stay currently less than 2 midnights in this patient presenting with upper respiratory symptoms that have progressed lower respiratory however currently not requiring oxygen. Nevertheless she has not shown any improvement despite initiation of outpatient management 48 hours ago, remains quite weak and with comorbid conditions at risk of progressive symptoms. Plans are as indicated. Coding Level of Care Code Acute Tin Assorter for [facility] Diagnoses Upper respiratory infection with cough and congestion J06.9 Community acquired pneumonia J18.9 Laterality: unspecified laterality Latent tuberculosis Z22.7 Reactive arthritis M02.30 IBS (irritable bowel syndrome) K58.2 Irritable bowel syndrome type: with both diarrhea and constipation GERD (gastroesophageal reflux disease) K21.9 Esophagitis presence: without esophagitis
[2021-01-04 08:41] LABS: Procalcitonin 0.07 ng/mL (0-0.5)
[2021-01-04] MEDS: lactobacillus 1 Tablet 1 TAB PO ×2 (09:13→17:29)
[2021-01-04] MEDS: loratadine 10 mg Tablet PO (09:13)
[2021-01-04] MEDS: predniSONE 20 mg Tablet 40 MG PO (09:14)
[2021-01-04] MEDS: enoxaparin 40 mg/0.4 mL Syringe SUBCUT (09:14)
[2021-01-04] MEDS: pantoprazole DR 40 mg Tablet PO (09:14)
[2021-01-04] MEDS: cefTRIAXone 2,000 MG in sodium chloride 0.9% (plus) 50 ML 100 MG IV (09:15)
[2021-01-04] MEDS: fluticasone nasal spray 16gm Btl 2 SPRAY NASAL ×2 (09:15→17:29)
[2021-01-04] MEDS: sodium chlor 0.9% + KCl 20 mEq 20 MEQ/1,000 ML BAG 100 MEQ IV ×2 (09:16→21:21)
[2021-01-04] MEDS: ondansetron 2 mg/ML SDV 2 mL 4 MG IVP (09:37)
[2021-01-04] MEDS: desvenlafaxine 50 mg Tablet 100 MG PO (11:47)
[2021-01-04] MEDS: azithromycin 500 MG in sodium chloride 0.9% 250 ML 250 MG IV (12:09)
[2021-01-04 13:28] LABS: Influenza A by IFA Negative (Negative); Influenza B by IFA Negative (Negative)
[2021-01-04 14:07] LABS: Add Urine Microscopic? NO; Charge for UA Resulting for Rev
[2021-01-04 14:38] LABS: Bilirubin Urine Neg (Negative); Blood Urine Neg (Negative); Glucose Urine UA Norm (Normal); Ketones Urine Negative (Negative); Leukocyte Esterase Urine Negative (Negative); Nitrate Urine Negative (Negative); Protein Urine Neg (Negative); Specific Gravity, Urine 1.005 (1.005-1.030); Urine Appearance Clear (CLEAR); Urine Color Straw (Yellow); Urobilinogen Urine Norm (Negative); pH Urine 5 (5-7)
--- NOTE | 2021-01-04 15:50 | P.PN_ITS ---
Subjective Subjective: Interval history: Malaise, chills, fever, dry cough today mild headache, diarrhea. Vitals/I&O/Wt Last Vital Signs Temp 99.3 F 01/04/21 12:00 Pulse 89 01/04/21 12:00 Resp 18 01/04/21 12:00 BP 143/83 01/04/21 12:00 Pulse Ox 91 01/04/21 12:00 01/04/21 01/04/21 01/04/21 06:59 14:59 22:59 Intake Total 1999 570 / 570 Output Total 600 / 600 Balance 1999 / -30 Weight last 48 hrs Weight 99.79 kg Physical Exam Const: COMMON NORMALS: no acute distress, patient oriented x3 and alert GENERAL APPEARANCE: not comfortable (Malaise) ORIENTATION/CONSCIOUSNESS: Yes awake HENMT: COMMON NORMALS: oropharynx normal Neck/C-Spine: COMMON NORMALS: no JVD Resp: COMMON NORMALS: normal respiratory effort AUSCULTATION: diminished lung sounds Cardio: COMMON NORMALS: no JVD, regular rhythm, S1 normal heart sound present, S2 normal heart sound present and No murmurs present (Cardio) RHYTHM: regular rhythm HEART SOUNDS: S1 normal heart sound present and S2 normal heart sound present GI: COMMON NORMALS: Normal to inspection, nondistended, normoactive bowel sounds present, Soft to palpation and non-tender PALPATION: Yes Soft to palpa tion Extremity: COMMON NORMALS: no joint enlargement and no pedal edema Neuro: COMMON NORMALS: patient oriented x3 and moves all extremities SENSORIUM/ORIENTATION: Yes alert Skin: COMMON NORMALS: no rashes or lesions noted GENERAL SKIN EXAM: no rashes or lesions noted Data : 01/04/21 03:10 01/04/21 03:10 Micro: Microbiology 01/04/21 13:57 Bacterial Antigens - Final Urine,Voided 01/04/21 13:57 Legionella Urinary Antigen - Final Urine,Voided 01/04/21 03:13 Blood Culture - Preliminary Blood SPECIMEN COLLECTED 01/04/21 03:13 Blood Culture - Preliminary Blood SPECIMEN COLLECTED A&P Assessment and plan (1) Upper respiratory infection with cough and congestion: Dry cough, malaise, fever, chills, nausea, diarrhea. Patchy/groundglass infiltrates in lower lobes on CT abdomen pelvis. Discussed with her suspect a likely viral or atypical pneumonia. Reactivation of latent TB discussed, but much less likely given other associated symptoms. But monitor. She denies longstanding symptoms, denies night sweats, weight loss. She has completed vaccination for COVID-19 back in August. Rapid COVID-19 is negative. We are still requesting COVID-19 PCR due to her symptoms. She has not required oxygen so far, although saturation did come down to 91% currently on room air. Continue to monitor closely given immunocompromise, on chronic steroids. Rapid flu negative. Will collect other respiratory viral panel. Does not have phlegm production currently to provide a sputum sample. As per discussion with her continue empiric antibiotic coverage. Status: Acute (2) Community acquired pneumonia: Status: Acute Qualifiers: Laterality: unspecified laterality Qualified Code(s): J18.9 - Pneumonia, unspecified organism (3) Latent tuberculosis: Follow-up with infectious disease in office to initiate treatment after recovery from acute illness. Status: Chronic (4) Reactive arthritis: Status: Chronic (5) IBS (irritable bowel syndrome): Status: Chronic Qualifiers: Irritable bowel syndrome type: with both diarrhea and constipation Qualified Code(s): K58.2 - Mixed irritable bowel syndrome (6) GERD (gastroesophageal reflux disease): Status: Chronic Qualifiers: Esophagitis presence: without esophagitis Qualified Code(s): K21.9 - Gastro-esophageal reflux disease without esophagitis Attestations Medical Necessity Statement*: Continue hospitalization for assessment of management of atypical pneumonia in a lady with immune compromised on chronic st eroids, lack of response to outpatient treatment with Levaquin. Coding Level of Care Code Acute Radiator Fitter for [facility] Diagnoses Upper respiratory infection with cough and congestion J06.9 Community acquired pneumonia J18.9 Laterality: unspecified laterality Latent tuberculosis Z22.7 Reactive arthritis M02.30 IBS (irritable bowel syndrome) K58.2 Irritable bowel syndrome type: with both diarrhea and constipation GERD (gastroesophageal reflux disease) K21.9 Esophagitis presence: without esophagitis
[2021-01-04] MEDS: CELEcoxib 200 mg Capsule PO (21:20)
[2021-01-05] VITALS (10 sets, daily range): BP systolic 107–147; BP diastolic 57–85; PULSE 68–99; RESP 16–18; TEMP 36.3–37.5; O2SAT 89–97
[2021-01-05] MEDS: ondansetron 2 mg/ML SDV 2 mL 4 MG IVP (00:14)
[2021-01-05] MEDS: acetaminophen 325 mg Tablet 650 MG PO ×2 (01:46→14:11)
[2021-01-05] MEDS: sodium chlor 0.9% + KCl 20 mEq 20 MEQ/1,000 ML BAG 100 MEQ IV ×2 (06:30→17:15)
[2021-01-05 06:43] LABS: Basophils % 0.3 %; Hemoglobin 13.1 g/dL (11.5-15.3); Lymphocytes # 2.1 10^3/uL (0.8-4.8); Lymphocytes % 20.3 %; Mean Corpuscular HGB Conc 31.2 g/dL (30.0-36.0); Mean Corpuscular Hemoglobin 29.4 pg (28.0-34.0); Mean Corpuscular Volume 94.4 fL (81-99); Mean Platelet Volume 10.3 fL (7.4-10.4); Monocytes # 0.4 10^3/uL (0.2-0.9); Monocytes % 3.5 %; Neutrophils # 7.92 10^3/uL (1.8-7.7); Neutrophils % 75.2 %; Nucleated Red Blood Cells % 0 %; Platelet Count 227 10^3/cmm (130-400); Red Blood Count 4.45 10^6/uL (4.1-5.3); Red Cell Distribution Width 13.1 % (12.1-15.1); White Blood Count 10.5 10^3/uL (4.0-10.0)
[2021-01-05 07:04] LABS: Blood Urea Nitrogen 9 mg/dL (8-23); Calcium 7.9 mg/dL (8.5-10.5); Carbon Dioxide 25 mmol/L (22-29); Chloride 107 mmol/L (98-107); Creatinine Clr Calc Pharmacy 84.3018; Glomerular Filtration Rate 83.5 mL/min (90-130); Glucose 89 mg/dL (65-115); Osmolality Calculated 290 mOsm/kg (285-295); Sodium 141 mmol/L (136-145)
[2021-01-05] MEDS: CELEcoxib 200 mg Capsule PO ×2 (09:43→21:43)
[2021-01-05] MEDS: pantoprazole DR 40 mg Tablet PO (09:44)
[2021-01-05] MEDS: lactobacillus 1 Tablet 1 TAB PO ×2 (09:44→17:14)
[2021-01-05] MEDS: predniSONE 20 mg Tablet 40 MG PO (09:44)
[2021-01-05] MEDS: enoxaparin 40 mg/0.4 mL Syringe SUBCUT (09:44)
[2021-01-05] MEDS: loratadine 10 mg Tablet PO (09:44)
[2021-01-05] MEDS: cefTRIAXone 2,000 MG in sodium chloride 0.9% (plus) 50 ML 100 MG IV (09:45)
[2021-01-05] MEDS: fluticasone nasal spray 16gm Btl 2 SPRAY NASAL ×2 (10:05→17:15)
[2021-01-05] MEDS: desvenlafaxine 50 mg Tablet 100 MG PO (10:05)
[2021-01-05] MEDS: azithromycin 500 MG in sodium chloride 0.9% 250 ML 250 MG IV (10:32)
--- NOTE | 2021-01-05 13:45 | PC.NURSE ---
updated patient's Sebastian Cevallos [phone] on patient's condition. Patient went into patient's room earlier and was asked to leave because patient is covid rule out and that is policy.
--- NOTE | 2021-01-05 15:52 | PC.NURSE ---
updated patient's on patient's condition.
--- NOTE | 2021-01-05 17:53 | PC.NURSE ---
notified Dr Beaver that patient's is requesting a call from him with update.
--- NOTE | 2021-01-05 18:08 | PM.PN ---
Subjective Subjective: Interval history: Today she is feeling slightly better. Still having diarrhea. Chills are a little bit better. No headache. Denies chest pain. No vomiting. Vitals/I&O/Wt Last Vital Signs Temp 98.0 F 01/05/21 16:00 Pulse 75 01/05/21 16:00 Resp 16 01/05/21 16:00 BP 107/78 01/05/21 16:00 Pulse Ox 95 01/05/21 16:00 01/05/21 01/05/21 01/05/21 06:59 14:59 22:59 Intake Total 915 / 2965 300 / 300 1000 / 1300 Output Total 600 / 3100 600 / 600 700 / 1300 Balance 315 / -135 -300 / -300 300 / 0 Weight last 48 hrs Weight 99.79 kg Physical Exam Narrative: EXAM NARRATIVE: Moist rag on her forehead, appears flushed, asks for a fan to be turned on a directed at her Const: COMMON NORMALS: no acute distress, patient oriented x3 and alert GENERAL APPEARANCE: not comfortable (Malaise) ORIENTATION/CONSCIOUSNESS: Yes awake HENMT: COMMON NORMALS: oropharynx normal Neck/C-Spine: COMMON NORMALS: no JVD Resp: COMMON NORMALS: normal respiratory effort and clear to auscultation bilaterally AUSCULTATION: clear to auscultation bilaterally Cardio: COMMON NORMALS: no JVD, regular rhythm, S1 normal heart sound present, S2 normal heart sound present and No murmurs present (Cardio) RHYTHM: regular rhythm HEART SOUNDS: S1 normal heart sound present and S2 normal heart sound present GI: COMMON NORMALS: Normal to inspection, nondistended, normoactive bowel sounds present, Soft to palpation and non-tender PALPATION: Yes Soft to palpation Extremity: COMMON NORMALS: no joint enlargement and no pedal edema Neuro: COMMON NORMALS: patient oriented x3 and moves all extremities SENSORIUM/ORIENTATION: Yes alert Skin: COMMON NORMALS: no rashes or lesions noted GENERAL SKIN EXAM: no rashes or lesions noted Data : 01/05/21 06:24 01/05/21 06:24 Micro: Microbiology 01/04/21 03:13 Blood Culture - Preliminary Blood NEGATIVE TO DATE 01/04/21 03:13 Blood Culture - Preliminary Blood NEGATIVE TO DATE 01/04/21 13:57 Bacterial Antigens - Final Urine,Voided 01/04/21 13:57 Legionella Urinary Antigen - Final Urine,Voided A&P Assessment and plan (1) Community acquired pneumonia: Atypical pneumonia with interstitial markings, with other associated symptoms with chills, nausea, diarrhea, previously headache, previously some ear discomfort, eye discomfort. These are currently better. She is still having chills, although fever appears to have been improving. On monitoring today appears she desaturated to 89%, started on oxygen. Discussed with her that PCR COVID-19 result is not yet available. Discussed that this could be covered, but possibly could be another viral or other atypical infection. She prefers not to initiate treatment just yet for COVID-19 unless PCR comes back positive. In case PCR positive, further management may depend on whether she is requiring oxygen. She has been fully vaccinated. Viral panel has been sent out and is pending. For now continue empirically on ceftriaxone, azithromycin for possible bacterial pneumonia, although this appears less likely. Continue treatment and monitoring in the hospital given immune compromised with chronic steroid use, persistent symptoms, and close monitoring of oxygenation given at least transient decrease in saturation down to 89% on room air. With acute illness prednisone dose has been increased to 40 mg daily. Monitor for signs of adrenal insufficiency. Lower chance of reactivation of latent TB discussed, but much less likely given other associated symptoms. But monitor. She denies longstanding symptoms, denies night sweats, weight loss. Status: Acute Qualifiers: Laterality: unspecified laterality Qualified Code(s): J18.9 - Pneumonia, unspecified organism (2) Latent tuberculosis: Follow-up with infectious disease in office to initiate treatment after recovery from acute illness. Status: Chronic (3) Reactive arthritis: Status: Chronic (4) IBS (irritable bowel syndrome): Status: Chronic Qualifiers: Irritable bowel syndrome type: with both diarrhea and constipation Qualified Code(s): K58.2 - Mixed irritable bowel syndrome (5) GERD (gastroesophageal reflux disease): Status: Chronic Qualifiers: Esophagitis presence: without esophagitis Qualified Code(s): K21.9 - Gastro-esophageal reflux disease without esophagitis Attestations Medical Necessity Statement*: Admission of over 2 midnights is needed for assessment management of pneumonia, now transiently with hypoxia, with immune compromise with her immune conditions, longstanding steroid treatments. Coding Level of Care Code Acute Assembly Instructions Writer for [facility] Diagnoses Community acquired pneumonia J18.9 Laterality: unspecified laterality Latent tuberculosis Z22.7 Reactive arthritis M02.30 IBS (irritable bowel syndrome) K58.2 Irritable bowel syndrome type: with both diarrhea and constipation GERD (gastroesophageal reflux disease) K21.9 Esophagitis presence: without esophagitis
[2021-01-05 23:37] LABS: Quest SARS-CoV-2 RNA DETECTED (NOT DETECTED)
[2021-01-06] VITALS (10 sets, daily range): BP systolic 124–169; BP diastolic 74–89; PULSE 66–80; RESP 12–24; TEMP 36.6–37.2; O2SAT 92–99
[2021-01-06] MEDS: sodium chlor 0.9% + KCl 20 mEq 20 MEQ/1,000 ML BAG 100 MEQ IV ×2 (03:40→15:33)
[2021-01-06 05:33] LABS: Basophils % 0.1 %; Eosinophils % 0.1 %; Hematocrit 39.5 % (37.0-47.0); Hemoglobin 12.4 g/dL (11.5-15.3); Lymphocytes # 1.9 10^3/uL (0.8-4.8); Mean Corpuscular HGB Conc 31.4 g/dL (30.0-36.0); Mean Corpuscular Volume 95.4 fL (81-99); Mean Platelet Volume 10.7 fL (7.4-10.4); Monocytes # 0.3 10^3/uL (0.2-0.9); Monocytes % 4.5 %; Neutrophils # 5.27 10^3/uL (1.8-7.7); Neutrophils % 69.5 %; Nucleated Red Blood Cells % 0 %; Platelet Count 217 10^3/cmm (130-400); Red Blood Count 4.14 10^6/uL (4.1-5.3); White Blood Count 7.6 10^3/uL (4.0-10.0)
[2021-01-06 05:57] LABS: Alanine Aminotransferase 26 U/L (0-33); Albumin Level 3.2 g/dL (3.5-5.2); Alkaline Phosphatase 87 IU/L (35-105); Anion Gap 12.3 (5-19); Aspartate Amino Transferase 23 U/L (0-32); Blood Urea Nitrogen 8 mg/dL (8-23); Carbon Dioxide 27 mmol/L (22-29); Chloride 109 mmol/L (98-107); Creatinine Clr Calc Pharmacy 84.3018; Globulin 2.7 g/dL (1.3-4.6); Glomerular Filtration Rate 99.7 mL/min (90-130); Glucose 106 mg/dL (65-115); Osmolality Calculated 297 mOsm/kg (285-295); Potassium 4.3 mmol/L (3.5-5.1); Sodium 144 mmol/L (136-145); Total Bilirubin 0.2 mg/dL (0.15-1.2); Total Protein 5.9 g/dL (6.6-8.7)
[2021-01-06] MEDS: CELEcoxib 200 mg Capsule PO ×2 (08:31→20:27)
[2021-01-06] MEDS: lactobacillus 1 Tablet 1 TAB PO ×2 (08:31→18:00)
[2021-01-06] MEDS: pantoprazole DR 40 mg Tablet PO (08:31)
[2021-01-06] MEDS: predniSONE 20 mg Tablet 40 MG PO (08:31)
[2021-01-06] MEDS: desvenlafaxine 50 mg Tablet 100 MG PO (08:33)
[2021-01-06] MEDS: cefTRIAXone 2,000 MG in sodium chloride 0.9% (plus) 50 ML 100 MG IV (08:33)
[2021-01-06] MEDS: loratadine 10 mg Tablet PO (08:33)
[2021-01-06] MEDS: enoxaparin 40 mg/0.4 mL Syringe SUBCUT (08:33)
[2021-01-06] MEDS: fluticasone nasal spray 16gm Btl 2 SPRAY NASAL ×2 (08:37→18:01)
[2021-01-06] MEDS: albuterol 8 gm MDI 2 PUFF INHALATION ×2 (09:03→20:38)
[2021-01-06] MEDS: azithromycin 500 MG in sodium chloride 0.9% 250 ML 250 MG IV (09:37)
--- NOTE | 2021-01-06 16:49 | PM.PN ---
Subjective Subjective: Interval history: Still feels weak. Having diarrhea. Sats stable on room air Vitals/I&O/Wt Last Vital Signs Temp 98.3 F 01/06/21 15:58 Pulse 75 01/06/21 15:58 Resp 20 H 01/06/21 15:58 BP 156/87 01/06/21 15:58 Pulse Ox 92 01/06/21 15:58 01/06/21 01/06/21 01/06/21 06:59 14:59 22:59 Intake Total 1000 / 2780 2860 / 2860 Output Total 875 / 3175 1200 / 1200 Balance 125 / -395 1660 / 1660 Physical Exam Const: COMMON NORMALS: no acute distress and patient oriented x3 Neck/C-Spine: COMMON NORMALS: no JVD Chest: COMMONS NORMALS: normal inspection of the chest Resp: COMMON NORMALS: normal respiratory effort Cardio: COMMON NORMALS: no JVD and regular rate RATE: regular rate GI: COMMON NORMALS: Normal to inspection, nondistended, normoactive bowel sounds present and non-tender Neuro: COMMON NORMALS: patient oriented x3 and CN's II-XII intact bilaterally Data : 01/06/21 04:45 01/06/21 04:45 A&P Assessment and plan (1) Community acquired pneumonia: Status: Acute Qualifiers: Laterality: unspecified laterality Qualified Code(s): J18.9 - Pneumonia, unspecified organism (2) COVID-19: Status: Acute Additional A&P Information #covid 19 pneumonia #weakness #reactive arthritis #IBS plan: 1. continue rocpehin, azithromycin 2. add decadron, vitamin D, C, zinc 3. up ad tatiana Dispo: dc likely soon Attestations Medical Necessity Statement*: Beatriz [facility]'s hospital stay will require greater than 2 midnights for pna Coding Level of Care Code Acute Radiological Equipment Specialist for [facility] Fwd Diagnoses Community acquired pneumonia J18.9 Laterality: unspecified laterality COVID-19 U07.1
[2021-01-06] MEDS: ascorbic acid 500 mg Tablet PO (18:00)
[2021-01-06] MEDS: cholecalciferol (vitamin D3) 1,000 unit Tablet 2000 UNIT PO (18:01)
[2021-01-06] MEDS: dexamethasone 4 mg Tablet PO (18:01)
[2021-01-06] MEDS: ondansetron 2 mg/ML SDV 2 mL 4 MG IVP (21:19)
[2021-01-07] MEDS: sodium chlor 0.9% + KCl 20 mEq 20 MEQ/1,000 ML BAG 100 MEQ IV ×2 (01:48→13:21)
[2021-01-07 03:35] VITALS: BP 164/93; PULSE 81; RESP 18; TEMP 36.6; O2SAT 96
[2021-01-07 06:11] LABS: Basophils % 0.3 %; Hemoglobin 13.4 g/dL (11.5-15.3); Lymphocytes % 15.9 %; Mean Corpuscular HGB Conc 31.9 g/dL (30.0-36.0); Mean Corpuscular Hemoglobin 29.9 pg (28.0-34.0); Mean Corpuscular Volume 93.8 fL (81-99); Mean Platelet Volume 10.4 fL (7.4-10.4); Monocytes # 0.2 10^3/uL (0.2-0.9); Monocytes % 3.1 %; Neutrophils # 5.09 10^3/uL (1.8-7.7); Neutrophils % 78.8 %; Nucleated Red Blood Cells % 0 %; Platelet Count 247 10^3/cmm (130-400); Red Blood Count 4.48 10^6/uL (4.1-5.3); Red Cell Distribution Width 12.6 % (12.1-15.1); White Blood Count 6.5 10^3/uL (4.0-10.0)
[2021-01-07 06:28] LABS: Alanine Aminotransferase 23 U/L (0-33); Albumin Level 3.3 g/dL (3.5-5.2); Alkaline Phosphatase 78 IU/L (35-105); Anion Gap 14.5 (5-19); Aspartate Amino Transferase 16 U/L (0-32); Blood Urea Nitrogen 9 mg/dL (8-23); Calcium 8.3 mg/dL (8.5-10.5); Carbon Dioxide 24 mmol/L (22-29); Chloride 105 mmol/L (98-107); Globulin 2.7 g/dL (1.3-4.6); Glomerular Filtration Rate 159.2 mL/min (90-130); Glucose 136 mg/dL (65-115); Osmolality Calculated 289 mOsm/kg (285-295); Potassium 4.5 mmol/L (3.5-5.1); Sodium 139 mmol/L (136-145); Total Bilirubin 0.3 mg/dL (0.15-1.2)
[2021-01-07 06:31] LABS: Creatinine Clr Calc Pharmacy 84.3018
[2021-01-07 06:34] LABS: Procalcitonin 0.02 ng/mL (0-0.5)
[2021-01-07 07:48] VITALS: PULSE 78; RESP 18; O2SAT 96
[2021-01-07] MEDS: albuterol 8 gm MDI 2 PUFF INHALATION (07:48)
[2021-01-07 08:00] VITALS: BP 172/88; PULSE 80; RESP 18; TEMP 36.6; O2SAT 93
[2021-01-07] MEDS: loratadine 10 mg Tablet PO (08:24)
[2021-01-07] MEDS: ascorbic acid 500 mg Tablet PO (08:24)
[2021-01-07] MEDS: zinc gluconate 50 mg Tablet PO (08:24)
[2021-01-07] MEDS: pantoprazole DR 40 mg Tablet PO (08:24)
[2021-01-07] MEDS: dexamethasone 4 mg Tablet PO (08:24)
[2021-01-07] MEDS: CELEcoxib 200 mg Capsule PO (08:24)
[2021-01-07] MEDS: cholecalciferol (vitamin D3) 1,000 unit Tablet 2000 UNIT PO (08:24)
[2021-01-07] MEDS: lactobacillus 1 Tablet 1 TAB PO (08:25)
[2021-01-07] MEDS: enoxaparin 40 mg/0.4 mL Syringe SUBCUT (08:26)
[2021-01-07] MEDS: fluticasone nasal spray 16gm Btl 2 SPRAY NASAL (08:27)
[2021-01-07] MEDS: cefTRIAXone 2,000 MG in sodium chloride 0.9% (plus) 50 ML 100 MG IV (09:15)
[2021-01-07] MEDS: desvenlafaxine 50 mg Tablet 100 MG PO (09:15)
[2021-01-07] MEDS: azithromycin 500 MG in sodium chloride 0.9% 250 ML 250 MG IV (10:27)
--- NOTE | 2021-01-07 11:30 | PM.DCS ---
Discharge Providers Date of Admission: 01/05/21 15:57 Date of Discharge: 01/07/21 Attending Provider at Admission: Paige Beach MD Attending Provider at Discharge: Emiliano Hong MD Primary Care Provider: Derick Cevallos MD Diagnoses at Discharge Discharge Diagnosis (1) Community acquired pneumonia: Qualifiers: Laterality: unspecified laterality Qualified Code(s): J18.9 - Pneumonia, unspecified organism (2) COVID-19: Status: Acute Reason for Visit Reason for Visit: Coughing\Fever\Diar\Dizzy\Ringing in Ears Hospital Course Hospital Course 65-year-old female presented with fever malaise she did not feel for about a week. She also noted to have cough runny nose earache dizziness and fevers. She presented to the ER with these complaints. It is noted that she has been vaccinated in the past. Imaging as below she was noted to also have diarrhea. tested positive for covid 19 she was given steroids, vitamins, and zinc. discharged in improved and stable condition. Chest X-Ray 01/04/21 03:06 IMPRESSION: Increased interstitial markings seen in the lower hemithoraces bilaterally, findings suggesting a bilateral interstitial pneumonia. Abdomen/Pelvis CT 01/04/21 04:00 IMPRESSION: 1. There are no acute abdominal findings. 2. Fatty infiltration of the liver 3. Subtle haziness seen along the serosal margin of the bladder could represent mild inflammatory changes and cystitis although the bladder is nondistended. 4. Diverticulosis of the descending and sigmoid colon 5. Benign cystic mass within the left ovary measuring up to 3.6 cm. No further workup needed. 6. Patchy peripheral ground-glass opacities present in the visualized hemithoraces, findings that suggest a bilateral patchy interstitial pneumonia.Commonly reported imaging features of COVID-19 pneumonia are present. Other processes such as influenza pneumonia and organizing pneumonia, as can be seen with drug toxicity and connective tissue disease, can cause a similar imaging pattern. (Reference: [facility]) Physical Exam Const: COMMON NORMALS: no acute distress and patient oriented x3 EXAM LIMITATIONS: no altered mental status Neck/C-Spine: COMMON NORMALS: no JVD Resp: EFFORT & INSPECTION: Yes able to speak in complete sentences and No abnormal respiratory pattern Cardio: COMMON NORMALS: no JVD and regular rate RATE: regular rate Neuro: COMMON NORMALS: patient oriented x3 and CN's II-XII intact bilaterally Discharge Data Data Completed and Pending: Completed Studies During Hospitalization Category Date Time Status CT abdomen pelvis w con* [id number] Urge nt Cat Scan 01/04/21 04:00 Completed XR chest 1V erendira ble [id number] Stat Exams 01/04/21 03:06 Completed Vitals: Last Vital Signs Temp 98.0 F 01/07/21 16:42 Pulse 78 01/07/21 16:42 Resp 17 01/07/21 16:42 BP 155/93 01/07/21 16:42 Pulse Ox 93 01/07/21 16:42 Discharge Plan Discharge Patient Disposition: Home Condition: Stable Prescriptions: New Vitamin C 500 mg Tablet 500 mg PO DAILY Qty: 30 RF: 0 cholecalciferol (vitamin D3) 25 mcg (1,000 unit) Tablet 2,000 unit PO DAILY Qty: 30 RF: 0 loperamide 2 mg Capsule 4 mg PO QID PRN (Reason: Diarrhea) Qty: 20 RF: 0 dexamethasone 4 mg Tablet 4 mg PO DAILY Qty: 7 RF: 0 zinc gluconate 50 mg Tablet 50 mg PO DAILY Qty: 30 RF: 0 Continued acetaminophen [Tylenol] 325 mg tablet 650 mg PO QID PRN (Reason: pain) Qty: 30 RF: 0 ondansetron HCl [Zofran] 4 mg tablet 4 mg PO Q6H PRN (Reason: Nausea And Vomiting) RF: 0 alprazolam [Xanax] 0.5 mg tablet 0.5 mg PO BID PRN (Reason: anxiety) Qty: 30 RF: 2 Dexilant 60 mg capsule,biphase delayed releas 60 mg PO DAILY Qty: 90 RF: 3 desvenlafaxine succinate 100 mg tablet extended release 24 hr 100 mg PO DAILY Qty: 30 RF: 3 Probiotic 1 cap PO DAILY RF: 0 tizanidine 4 mg tablet 4 mg PO BEDTIME PRN (Reason: muscle spasticity) RF: 0 Celebrex 400 mg capsule 400 mg PO BID PRN (Reason: Pain) RF: 0 Discontinued prednisone 20 mg tablet 20 mg PO QAM RF: 0 levofloxacin 750 mg tablet 750 mg PO QAM RF: 0 No Action rifapentine 150 mg tablet 900 mg PO .weekly 84 Days Qty: 72 RF: 0 isoniazid 300 mg tablet 900 mg PO .weekly 84 Days Qty: 36 RF: 0 pyridoxine (vitamin B6) 50 mg tablet 25 mg PO DAILY 84 Days Qty: 90 RF: 0 Discharge Orders: Discharge Order (Routine); Ordered 01/07/21 Ordered By: Emiliano Hong Referrals: Derick Cevallos MD [Primary Care Provider] - 01/21/21 1:00 pm Discharge Diet: Advance as tolerated Discharge Activity: Resume usual activity Patient Instructions: Loperamide (By mouth), Zinc Sulfate (By mouth), Ascorbic Acid (Vitamin C) (By mouth), Dexamethasone (By mouth), Cefdinir (By mouth), Vitamin D (By mouth), Community-acquired Pneumonia (DC), Opioid Safety, Pneumonia Stoplight Discharge Attestations Time Spent in Discharge Care*: less than 30 min Quality Metrics Clinical Quality Measures During this hospital stay, did patient experience: None Coding Level of Care Code Acute Chg FW DC note Diagnoses Community acquired pneumonia J18.9 Laterality: unspecified laterality COVID-19 U07.1
[2021-01-07 11:48] VITALS: BP 155/93; PULSE 78; RESP 17; TEMP 36.7; O2SAT 93
[2021-01-07] MEDS: loperamide 2 mg Capsule 4 MG PO (14:26)
--- NOTE | 2021-01-07 15:04 | PC.NURSE ---
Discharge instructions given to patient. Patient verbalized understanding. Removed IV and covered with 2x2 and coban. Waiting on meds to bed and ride.
[2021-01-07 16:42] VITALS: BP 155/93; PULSE 78; RESP 17; TEMP 36.7; O2SAT 93
--- NOTE | 2021-01-07 16:44 | PC.NURSE ---
Staff took patient to private wheelchair via wheelchair.
[2021-01-07 17:27] LABS: Adenovirus Not Detected (Not Detected); Human Metapneumovirus Not Detected (Not Detected); Human Parainflu Virus 1 Not Detected (Not Detected); Human Parainflu Virus 2 Not Detected (Not Detected); Human Parainflu Virus 3 Not Detected (Not Detected); Human Rsv A Not Detected (Not Detected); Influenza A Not Detected (Not Detected); Influenza B Not Detected (Not Detected); Rhinovirus/Enterovirus Not Detected (Not Detected)
== END 2021-01-07 16:43 | disposition home or self-care (01) | DRG 177 ==
LOC: ER 05:16 → MEDSURG 06:10
PROVIDERS: Internal Medicine; Admitting Provider Hospitalist; Emergency Provider Emergency Medicine; PCP Internal Medicine; Visit Provider Internal Medicine
DX: U07.1 COVID-19 (principal); J12.82 Pneumonia due to coronavirus disease 2019; J18.9 Pneumonia, unspecified organism; M02.30 Reiter's disease, unspecified site; Z22.7 Latent tuberculosis; G89.29 Other chronic pain; M79.7 Fibromyalgia; K21.9 Gastro-esophageal reflux disease without esophagitis; E78.5 Hyperlipidemia, unspecified; M54.31 Sciatica, right side; K58.2 Mixed irritable bowel syndrome; Z79.52 Long term (current) use of systemic steroids
CPT/HCPCS: 36415; 71045; 74177; 80048; 80053; 81001; 81003; 83605; 83880; 84145; 85025; 86140; 86403; 87040; 87426; 87449; 87635; 87804; 93005; 94640; 96361; 96365; 96372; 99285; G0378; J0456; J0696; J1650; J1956; J2405; J3535; J7030; J7050; J7512; J7611; J8540; Q9967

== ENCOUNTER 2021-03-14 14:47 | Outpatient (CLI) | payer MEDICARE, BC, SELFPAY ==
[2021-03-14 16:07] LABS: Alanine Aminotransferase 28 U/L (0-33); Albumin Level 4.2 g/dL (3.5-5.2); Alkaline Phosphatase 104 IU/L (35-105); Aspartate Amino Transferase 21 U/L (0-32); Globulin 2.4 g/dL (1.3-4.6); Total Bilirubin 0.4 mg/dL (0.15-1.2); Total Protein 6.6 g/dL (6.6-8.7)
== END 2021-03-14 14:48 | disposition home or self-care (01) ==
LOC: LAB 15:04
PROVIDERS: PCP Internal Medicine; Visit Provider Student in an Organized Health Care Education/Training Program
DX: Z22.7 Latent tuberculosis (principal)
CPT/HCPCS: 36415; 80076

== ENCOUNTER → 2021-04-08 14:32 | Outpatient (BNVA) | payer MEDICARE, BC, SELFPAY | PROVIDERS: PCP Internal Medicine; Visit Provider Student in an Organized Health Care Education/Training Program | DX: Z22.7 Latent tuberculosis (principal) | CPT/HCPCS: 80053; 85025 ==

== ENCOUNTER → 2021-05-20 13:49 | Outpatient (BNVA) | payer MEDICARE, BC, SELFPAY | PROVIDERS: PCP Internal Medicine; Visit Provider Student in an Organized Health Care Education/Training Program | DX: Z79.899 Other long term (current) drug therapy (principal); Z22.7 Latent tuberculosis | CPT/HCPCS: 82977; 83615; 84450; 84460 ==

== ENCOUNTER → 2021-07-29 14:47 | Outpatient (BNVA) | payer MEDICARE, BC, SELFPAY | PROVIDERS: PCP Internal Medicine; Visit Provider Internal Medicine Rheumatology | DX: M15.9 Polyosteoarthritis, unspecified (principal); M54.2 Cervicalgia; Z79.899 Other long term (current) drug therapy; Z79.1 Long term (current) use of non-steroidal anti-inflammatories (NSAID); Z79.52 Long term (current) use of systemic steroids; Z15.89 Genetic susceptibility to other disease; Z22.7 Latent tuberculosis; Z71.89 Other specified counseling | CPT/HCPCS: 99214 ==

== ENCOUNTER 2021-09-26 16:53 | Outpatient (CLI) | payer MEDICARE, BC, SELFPAY ==
[2021-09-26 17:49] LABS: Basophils # 0.1 10^3/uL (0.0-0.1); Eosinophils # 0.1 10^3/uL (0.0-0.8); Eosinophils % 1.2 %; Hematocrit 45.2 % (37.0-47.0); Hemoglobin 14.5 g/dL (11.5-15.3); Lymphocytes # 3.3 10^3/uL (0.8-4.8); Lymphocytes % 36.7 %; Mean Corpuscular HGB Conc 32.1 g/dL (30.0-36.0); Mean Corpuscular Hemoglobin 30.1 pg (28.0-34.0); Mean Platelet Volume 10.1 fL (7.4-10.4); Monocytes # 0.8 10^3/uL (0.2-0.9); Monocytes % 8.4 %; Neutrophils # 4.65 10^3/uL (1.8-7.7); Neutrophils % 52.4 %; Nucleated Red Blood Cells % 0 %; Platelet Count 246 10^3/cmm (130-400); Red Blood Count 4.81 10^6/uL (4.1-5.3); Red Cell Distribution Width 13.2 % (12.1-15.1); White Blood Count 8.9 10^3/uL (4.0-10.0)
[2021-09-26 18:01] LABS: Alanine Aminotransferase 46 U/L (0-33); Albumin Level 4.6 g/dL (3.5-5.2); Alkaline Phosphatase 91 IU/L (35-105); Aspartate Amino Transferase 36 U/L (0-32); Globulin 2.7 g/dL (1.3-4.6); Glomerular Filtration Rate 99.7 mL/min (90-130); Total Bilirubin 0.4 mg/dL (0.15-1.2); Total Protein 7.3 g/dL (6.6-8.7)
== END 2021-09-26 16:54 | disposition home or self-care (01) ==
PROVIDERS: PCP Internal Medicine; Visit Provider Internal Medicine Rheumatology
DX: M46.90 Unspecified inflammatory spondylopathy, site unspecified (principal); Z79.899 Other long term (current) drug therapy
CPT/HCPCS: 80076; 82565; 85025; 86140

== ENCOUNTER → 2021-11-25 13:52 | Outpatient (BNVA) | payer MEDICARE, BC, SELFPAY | PROVIDERS: PCP Internal Medicine; Visit Provider Internal Medicine Rheumatology | DX: M15.9 Polyosteoarthritis, unspecified (principal); M46.90 Unspecified inflammatory spondylopathy, site unspecified; Z15.89 Genetic susceptibility to other disease; Z79.899 Other long term (current) drug therapy; Z71.89 Other specified counseling; Z79.1 Long term (current) use of non-steroidal anti-inflammatories (NSAID) | CPT/HCPCS: 71046; 99214 ==

== ENCOUNTER → 2021-11-26 14:30 | Outpatient (BNVA) | payer MEDICARE, BC, SELFPAY | PROVIDERS: PCP Internal Medicine; Visit Provider Internal Medicine | DX: Z01.818 Encounter for other preprocedural examination (principal); J06.9 Acute upper respiratory infection, unspecified; R05.9 Cough, unspecified; R06.2 Wheezing | CPT/HCPCS: 87635; 87801 ==

== ENCOUNTER → 2022-03-16 12:51 | Outpatient (BNVA) | payer MEDICARE, BC, SELFPAY | PROVIDERS: PCP Internal Medicine; Visit Provider Internal Medicine Rheumatology | DX: M15.9 Polyosteoarthritis, unspecified (principal); Z79.899 Other long term (current) drug therapy; Z71.89 Other specified counseling; Z15.89 Genetic susceptibility to other disease; Z86.15 Personal history of latent tuberculosis infection; Z79.1 Long term (current) use of non-steroidal anti-inflammatories (NSAID) | CPT/HCPCS: 99214 ==

== ENCOUNTER 2022-03-31 15:45 | Outpatient (CLI) | payer MEDICARE, BC, SELFPAY ==
[2022-03-31 16:55] LABS: Basophils # 0.1 10^3/uL (0.0-0.1); Basophils % 1.2 %; Eosinophils # 0.2 10^3/uL (0.0-0.8); Hematocrit 45.4 % (37.0-47.0); Hemoglobin 14.7 g/dL (11.5-15.3); Lymphocytes # 3.1 10^3/uL (0.8-4.8); Lymphocytes % 38.1 %; Mean Corpuscular HGB Conc 32.4 g/dL (30.0-36.0); Mean Corpuscular Hemoglobin 31.1 pg (28.0-34.0); Mean Platelet Volume 10.6 fL (7.4-10.4); Monocytes # 0.6 10^3/uL (0.2-0.9); Monocytes % 6.9 %; Neutrophils # 4.17 10^3/uL (1.8-7.7); Neutrophils % 51.6 %; Nucleated Red Blood Cells % 0 %; Platelet Count 299 10^3/cmm (130-400); Red Blood Count 4.73 10^6/uL (4.1-5.3); Red Cell Distribution Width 12.8 % (12.1-15.1); White Blood Count 8.1 10^3/uL (4.0-10.0)
[2022-03-31 17:46] LABS: Alanine Aminotransferase 35 U/L (0-33); Albumin Level 4.3 g/dL (3.5-5.2); Alkaline Phosphatase 108 U/L (35-105); C Reactive Protein 4.8 mg/L (0.0-4.9); Globulin 2.6 g/dL (1.3-4.6); Glomerular Filtration Rate 99.4 mL/min (90-130); Total Bilirubin 0.3 mg/dL (0.15-1.2); Total Protein 6.9 g/dL (6.6-8.7)
[2022-03-31 17:53] LABS: Aspartate Amino Transferase 28 U/L (0-32)
== END 2022-03-31 15:46 | disposition home or self-care (01) ==
PROVIDERS: PCP Internal Medicine; Visit Provider Internal Medicine Rheumatology
DX: M46.90 Unspecified inflammatory spondylopathy, site unspecified (principal); Z79.899 Other long term (current) drug therapy
CPT/HCPCS: 36415; 80076; 82565; 85025; 86140

== ENCOUNTER → 2022-07-15 14:05 | Outpatient (BNVA) | payer MEDICARE, BC, SELFPAY | PROVIDERS: PCP Internal Medicine; Visit Provider Internal Medicine Rheumatology | DX: Z79.899 Other long term (current) drug therapy (principal); M46.90 Unspecified inflammatory spondylopathy, site unspecified; M19.90 Unspecified osteoarthritis, unspecified site; Z71.89 Other specified counseling; Z15.89 Genetic susceptibility to other disease | CPT/HCPCS: 99214 ==

== ENCOUNTER 2022-07-16 08:37 | Outpatient (CLI) | payer MEDICARE, BC, SELFPAY ==
[2022-07-16 09:25] LABS: Estmated Average Glucose 151; Hemoglobin A1C 6.9 % (4.0-6.0)
[2022-07-16 09:33] LABS: Alanine Aminotransferase 47 U/L (0-33); Albumin Level 4.2 g/dL (3.5-5.2); Alkaline Phosphatase 100 U/L (35-105); Globulin 2.7 g/dL (1.3-4.6); Glomerular Filtration Rate 83.2 mL/min (90-130); Total Bilirubin 0.5 mg/dL (0.15-1.2); Total Protein 6.9 g/dL (6.6-8.7)
[2022-07-16 09:35] LABS: Aspartate Amino Transferase 38 U/L (0-32)
[2022-07-16 10:15] LABS: Basophils # 0.1 10^3/uL (0.0-0.1); Basophils % 1.5 %; Eosinophils # 0.1 10^3/uL (0.0-0.8); Eosinophils % 1.9 %; Hematocrit 44.6 % (37.0-47.0); Hemoglobin 14.4 g/dL (11.5-15.3); Lymphocytes # 3.5 10^3/uL (0.8-4.8); Lymphocytes % 52.5 %; Mean Corpuscular HGB Conc 32.3 g/dL (30.0-36.0); Mean Corpuscular Hemoglobin 29.9 pg (28.0-34.0); Mean Corpuscular Volume 92.5 fl (81-99); Mean Platelet Volume 10.9 fL (7.4-10.4); Monocytes # 0.5 10^3/uL (0.2-0.9); Monocytes % 7.9 %; Neutrophils # 2.41 10^3/uL (1.8-7.7); Neutrophils % 35.9 %; Nucleated Red Blood Cells % 0 %; Platelet Count 272 10^3/cmm (130-400); Red Blood Count 4.82 10^6/uL (4.1-5.3); Red Cell Distribution Width 13.2 % (12.1-15.1); White Blood Count 6.7 10^3/uL (4.0-10.0)
[2022-07-16 10:34] LABS: Glucose 132 mg/dL (65-115)
== END 2022-07-16 08:38 | disposition home or self-care (01) ==
LOC: LAB 08:44
PROVIDERS: PCP Internal Medicine; Visit Provider Internal Medicine Rheumatology
DX: M19.90 Unspecified osteoarthritis, unspecified site (principal); Z15.89 Genetic susceptibility to other disease; Z79.899 Other long term (current) drug therapy
CPT/HCPCS: 36415; 80076; 82565; 82947; 83036; 85025; 86140

== ENCOUNTER 2022-08-05 10:49 | Outpatient (CLI) | payer MEDICARE, BC, SELFPAY ==
--- NOTE | 2022-08-05 11:00 | MR_ITS ---
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 COMPARISON: CT 01/04/2021 TECHNIQUE: Sagittal and axial multisequence imaging is submitted. L5 is partially sacralized. L1 is labeled as the first nonrib-bearing vertebral body. The L4 vertebra l body with 5.3 mm anterolisthesis. Moderate disc space narrowing at L4-5. Otherwise lumbar alignment is normal. Conus terminates normally at L1. L1-L2: Normal. L2-L3: Mild annular disc bulging with mild ligamentum flavum and facet arthritis. No stenosis. L3-L4: Mild annular disc bulging. Moderate to severe facet joint arthritis encroaching into the theca l sac. Mild narrowing of the subarticular recesses with encroachment upon the traversing L4 nerve carlos a ts. Mild foraminal stenosis. L4-L5: Asymmetric disc bulging to the RIGHT. Broad-based RIGHT foraminal disc protrusion. Mild narrow ing of the RIGHT subarticular recess. There is only very minimal LEFT foraminal narrowing. L5-S1: Rudimentary disc. No herniation. Paravertebral soft tissues are normal. MR/MR lumbar spine wo con* [id number] IMPRESSION: 1. L4 anterolisthesis by 5.3 mm. 2. L5 is partially sacralized with a rudimentary L5-S1 disc. 3. Moderate to severe facet joint arthritis at L3-4 with mild encroachment int o the subarticular recesses. Encroachment upon the traversing L4 nerve roots. 4. Asymmetric broad-based disc bulging with a RIGHT foraminal disc protrusion at L4-5. Mild narrowing of the RIGHT subarticular recess.
== END 2022-08-05 10:50 | disposition home or self-care (01) ==
LOC: RAD 10:49
PROVIDERS: PCP Internal Medicine; Visit Provider Internal Medicine Rheumatology
DX: M46.90 Unspecified inflammatory spondylopathy, site unspecified (principal)
CPT/HCPCS: 72148

== ENCOUNTER → 2022-08-18 14:54 | Outpatient (BNVA) | payer MEDICARE, BC, SELFPAY | PROVIDERS: PCP Internal Medicine; Referring Provider Internal Medicine Rheumatology; Visit Provider Physician Assistant | DX: M47.816 Spondylosis without myelopathy or radiculopathy, lumbar region (principal); Q76.49 Other congenital malformations of spine, not associated with scoliosis | CPT/HCPCS: 72110 ==

== ENCOUNTER 2022-08-18 16:18 | Outpatient (CLI) | payer MEDICARE, BC, SELFPAY | END 2022-08-18 16:19 | disposition home or self-care (01) | LOC: SPT 16:19 | PROVIDERS: PCP Internal Medicine; Visit Provider Physician Assistant | DX: Z46.89 Encounter for fitting and adjustment of other specified devices (principal); M54.50 Low back pain, unspecified | CPT/HCPCS: 97760; 99203; L0637 ==

== ENCOUNTER → 2022-09-17 09:56 | Outpatient (BNVA) | payer MEDICARE, BC, SELFPAY | PROVIDERS: PCP Internal Medicine; Visit Provider Anesthesiology Pain Medicine | DX: M51.36 Other intervertebral disc degeneration, lumbar region (principal); M43.17 Spondylolisthesis, lumbosacral region; M43.16 Spondylolisthesis, lumbar region | CPT/HCPCS: 99204 ==

== ENCOUNTER → 2022-10-08 13:06 | Outpatient (BNVA) | payer MEDICARE, BC, SELFPAY | PROVIDERS: PCP Internal Medicine; Visit Provider Internal Medicine Rheumatology | DX: M46.90 Unspecified inflammatory spondylopathy, site unspecified (principal); M19.90 Unspecified osteoarthritis, unspecified site; Z71.89 Other specified counseling; Z79.899 Other long term (current) drug therapy; B27.00 Gammaherpesviral mononucleosis without complication | CPT/HCPCS: 36415; 80076; 82565; 85025; 86140; 99214 ==

== ENCOUNTER → 2022-10-14 10:02 | Outpatient (BNVA) | payer MEDICARE, BC, SELFPAY | PROVIDERS: PCP Internal Medicine; Visit Provider Anesthesiology Pain Medicine | DX: M79.18 Myalgia, other site (principal); M51.36 Other intervertebral disc degeneration, lumbar region; M43.17 Spondylolisthesis, lumbosacral region; M43.16 Spondylolisthesis, lumbar region | CPT/HCPCS: 20553; 99213 ==

== ENCOUNTER → 2022-11-19 14:19 | Outpatient (BNVA) | payer MEDICARE, BC, SELFPAY | PROVIDERS: PCP Internal Medicine; Visit Provider Physician Assistant | DX: M47.812 Spondylosis without myelopathy or radiculopathy, cervical region (principal); M50.30 Other cervical disc degeneration, unspecified cervical region; M48.02 Spinal stenosis, cervical region | CPT/HCPCS: 72050; 99213 ==

== ENCOUNTER → 2022-12-10 11:20 | Outpatient (BNVA) | payer MEDICARE, BC, SELFPAY | PROVIDERS: PCP Internal Medicine; Visit Provider Anesthesiology Pain Medicine | DX: M51.36 Other intervertebral disc degeneration, lumbar region (principal); M43.17 Spondylolisthesis, lumbosacral region; M43.16 Spondylolisthesis, lumbar region | CPT/HCPCS: 99213 ==

== ENCOUNTER 2022-12-11 12:44 | Outpatient (CLI) | payer MEDICARE, BC, SELFPAY ==
--- NOTE | 2022-12-11 13:00 | MR_ITS ---
WS: [id number] MRI CERVICAL SPINE NONCONTRAST TECHNIQUE: Sagittal T1, T2 and STIR imaging. Axial T2, gradient, and fiesta imaging. CLINICAL INFORMATION: pain COMPARISON: None. FINDINGS: Straightening of the normal cervical lordosis. Slight anterolisthesis C4 on C5. Disc osteophyte compl ex C5-C6 with mild central canal stenosis. Slight anterolisthesis T1 on T2 and T2 on T3 with mild rene tral canal stenosis at T2-T3. C2-C3: No significant disc bulging. Mild RIGHT foraminal narrowing. Moderate facet arthropathy with s ynovitis in the articulating RIGHT C2-C3 facets with associated periarticular edema. C3-C4: Disc osteophyte complex with endplate ridging. Mild bilateral bony foraminal narrowing. Mild f acet arthropathy. C4-C5: Mild disc osteophyte complex with endplate ridging. Moderate LEFT facet arthropathy. Moderate LEFT foraminal narrowing. C5-C6: Disc osteophyte complex with slight indentation on the cervical cord. Mild central canal steno sis. Moderate to severe LEFT greater than RIGHT bony foraminal narrowing with uncovertebral joint hyp ertrophy. Mild facet arthropathy. C6-C7: Mild disc bulging with slight effacement of the ventral thecal sac. Mild LEFT and no significa nt RIGHT foraminal narrowing. Mild facet arthropathy. Spinal canal is patent. C7-T1: LEFT greater than RIGHT bony foraminal narrowing. Spinal canal is patent. Visualized brain stem structures: Normal. Prevertebral soft tissues: Normal. A few tiny nodules visualized in the thyroid. This can be followed up with ultrasound. MR/MR cervical spin wo con* [id number] IMPRESSION: 1. Straightening of the normal cervical lordosis. Cord signal is normal. 2. Small central disc osteophyte protrusion C5-C6 with indentation on the vent ral cervical cord. Mild central canal stenosis. 3. Moderate to severe bilateral C5-C6 bony foraminal narrowing LEFT greater th an RIGHT. 4. Moderate facet arthropathy RIGHT C2-C3 with periarticular edema compatible with synovitis likely degenerative or inflammatory. 5. Moderate LEFT C4-C5 bony foraminal narrowing with moderate LEFT facet arthr opathy.
== END 2022-12-11 12:45 | disposition home or self-care (01) ==
PROVIDERS: PCP Internal Medicine; Visit Provider Physician Assistant
DX: M47.812 Spondylosis without myelopathy or radiculopathy, cervical region (principal); M50.30 Other cervical disc degeneration, unspecified cervical region; M50.222 Other cervical disc displacement at C5-C6 level
CPT/HCPCS: 72141

== ENCOUNTER → 2023-01-07 09:14 | Outpatient (BNVA) | payer MEDICARE, BC, SELFPAY | PROVIDERS: PCP Internal Medicine; Visit Provider Anesthesiology Pain Medicine | DX: M51.36 Other intervertebral disc degeneration, lumbar region (principal); M43.17 Spondylolisthesis, lumbosacral region; M43.16 Spondylolisthesis, lumbar region; M47.812 Spondylosis without myelopathy or radiculopathy, cervical region; M50.30 Other cervical disc degeneration, unspecified cervical region; M46.90 Unspecified inflammatory spondylopathy, site unspecified; Z79.899 Other long term (current) drug therapy; M19.90 Unspecified osteoarthritis, unspecified site; Z71.89 Other specified counseling; Z15.89 Genetic susceptibility to other disease | CPT/HCPCS: 36415; 80076; 82565; 85025; 86140; 99214 ==

== ENCOUNTER → 2023-01-26 14:06 | Outpatient (BNVA) | payer MEDICARE, BC, SELFPAY | PROVIDERS: PCP Internal Medicine; Visit Provider Anesthesiology Pain Medicine | DX: M47.812 Spondylosis without myelopathy or radiculopathy, cervical region (principal) | CPT/HCPCS: 64490; 64491; 64492; J3490 ==

== ENCOUNTER → 2023-02-18 11:09 | Outpatient (BNVA) | payer MEDICARE, BC, SELFPAY | PROVIDERS: PCP Internal Medicine; Visit Provider Anesthesiology Pain Medicine | DX: M51.36 Other intervertebral disc degeneration, lumbar region; M43.17 Spondylolisthesis, lumbosacral region; M43.16 Spondylolisthesis, lumbar region; M47.812 Spondylosis without myelopathy or radiculopathy, cervical region; M50.30 Other cervical disc degeneration, unspecified cervical region | CPT/HCPCS: 99214 ==

== ENCOUNTER → 2023-03-09 09:12 | Outpatient (BNVA) | payer MEDICARE, BC, SELFPAY | PROVIDERS: PCP Internal Medicine; Visit Provider Anesthesiology Pain Medicine | DX: M79.18 Myalgia, other site (principal); M47.812 Spondylosis without myelopathy or radiculopathy, cervical region; M50.30 Other cervical disc degeneration, unspecified cervical region; M51.36 Other intervertebral disc degeneration, lumbar region; M43.17 Spondylolisthesis, lumbosacral region; M43.16 Spondylolisthesis, lumbar region | CPT/HCPCS: 20553; 99214; J1030; J3490 ==

== ENCOUNTER → 2023-04-08 14:03 | Outpatient (BNVA) | payer MEDICARE, BC, SELFPAY | PROVIDERS: PCP Internal Medicine; Visit Provider Internal Medicine Rheumatology | DX: Z79.899 Other long term (current) drug therapy (principal); M46.90 Unspecified inflammatory spondylopathy, site unspecified; M19.90 Unspecified osteoarthritis, unspecified site; Z71.89 Other specified counseling; Z15.89 Genetic susceptibility to other disease | CPT/HCPCS: 36415; 80076; 82565; 85025; 86140; 99214 ==

== ENCOUNTER → 2023-05-25 11:09 | Outpatient (BNVA) | payer MEDICARE, BC, SELFPAY | PROVIDERS: PCP Internal Medicine; Visit Provider Anesthesiology Pain Medicine | DX: M79.18 Myalgia, other site (principal); M51.36 Other intervertebral disc degeneration, lumbar region; M43.17 Spondylolisthesis, lumbosacral region; M43.16 Spondylolisthesis, lumbar region; M47.812 Spondylosis without myelopathy or radiculopathy, cervical region; M50.30 Other cervical disc degeneration, unspecified cervical region | CPT/HCPCS: 20553; 99214; J1030; J3490 ==

== ENCOUNTER → 2023-07-22 14:05 | Outpatient (BNVA) | payer MEDICARE, BC, SELFPAY | PROVIDERS: PCP Internal Medicine; Visit Provider Internal Medicine Rheumatology | DX: Z79.899 Other long term (current) drug therapy (principal); E04.1 Nontoxic single thyroid nodule; M46.90 Unspecified inflammatory spondylopathy, site unspecified; M19.90 Unspecified osteoarthritis, unspecified site; Z71.89 Other specified counseling; Z15.89 Genetic susceptibility to other disease | CPT/HCPCS: 36415; 80076; 82565; 84439; 84443; 85025; 86140; 99214 ==

== ENCOUNTER 2023-07-30 14:14 | Outpatient (CLI) | payer MEDICARE, BC, SELFPAY ==
--- NOTE | 2023-07-30 14:45 | US_ITS ---
WS: [email or web address] THYROID ULTRASOUND HISTORY: E04.1 - Nontoxic single thyroid nodule COMPARISON: None available. Right lobe: 2.2 cm x 2.2 cm x 5.8 cm (w x ap x l). Volume: 14.6 cm3. Enlarged mildly heterogeneous thyroid. There is an ill-defined solid nodule in the mid gland measurin g 1.5 x 1.3 x 2.1 cm. This is nearly isoechoic to the adjacent normal thyroid. No increased vasculari ty. There is an additional hypoechoic nodule in the superior pole measuring 1.1 x 0.9 x 1.4 cm. Left lobe: 2.6 cm x 2.1 cm x 6.3 cm (w x ap x l). Volume: 18.0 cm3. Enlarged heterogeneous gland. Normal size and echotexture. No significant or dominant nodules are present. Isthmus: 0.9 cm. Central nodule measures 1.5 x 1.0 x 1.8 cm. No echogenic foci. IMPRESSION: 1. Multinodular enlarged thyroid consistent with a goiter. Consider yearly ultrasound evaluation. If these nodules increase in size or become more concerning FNA can be performed.
== END 2023-07-30 14:15 | disposition home or self-care (01) ==
LOC: RAD 14:15
PROVIDERS: PCP Internal Medicine; Visit Provider Internal Medicine Rheumatology
DX: E04.2 Nontoxic multinodular goiter (principal)
CPT/HCPCS: 76536

== ENCOUNTER 2023-08-18 10:00 | Oncology outpatient (recurring) (ONCR) | payer MEDICARE, BC, SELFPAY ==
[2023-08-05] MEDS: sodium chloride 0.9% 250 ML 75 ML IV (10:38)
[2023-08-05] MEDS: diphenhydrAMINE 50 mg/mL SDV 1mL 25 MG IVP (10:48)
[2023-08-05] MEDS: acetaminophen 325 mg Tablet 650 MG PO (10:48)
[2023-08-05] MEDS: methylPREDNISolone sod succ 40 mg/mL INJ IVP (10:54)
[2023-08-05 11:27] VITALS: BP 142/84; PULSE 75; RESP 17; TEMP 36.7; O2SAT 95
[2023-08-05] MEDS: SODIUM CHLORIDE 0.9% IV (11:27)
[2023-08-05] MEDS: INFLIXIMAB ABDA IV (11:27)
[2023-08-05 11:42] VITALS: BP 150/79; PULSE 79; RESP 17; TEMP 36.8; O2SAT 96
[2023-08-05 11:57] VITALS: BP 164/77; PULSE 80; RESP 17; TEMP 36.8; O2SAT 98
[2023-08-05 12:12] VITALS: BP 162/72; PULSE 80; RESP 17; TEMP 36.3; O2SAT 98
[2023-08-05 12:27] VITALS: BP 152/82; PULSE 79; RESP 17; TEMP 36.3; O2SAT 95
[2023-08-05 14:15] VITALS: BP 142/80; PULSE 88; RESP 17; TEMP 36.3; O2SAT 95
[2023-08-18] VITALS (8 sets, daily range): BP systolic 131–157; BP diastolic 69–90; PULSE 75–90; RESP 16–18; TEMP 36.2–36.9; O2SAT 91–96; BMI 35.7
[2023-08-18] MEDS: acetaminophen 325 mg Tablet 650 MG PO (10:41)
[2023-08-18] MEDS: diphenhydrAMINE 50 mg/mL SDV 1mL 25 MG IVP (10:42)
[2023-08-18] MEDS: methylPREDNISolone sod succ 40 mg/mL INJ IVP (10:51)
[2023-08-18] MEDS: INFLIXIMAB ABDA IV (11:28)
[2023-08-18] MEDS: SODIUM CHLORIDE 0.9% IV (11:28)
== END 2023-08-18 23:59 | disposition home or self-care (01) ==
PROVIDERS: PCP Internal Medicine; Visit Provider Internal Medicine Rheumatology
DX: Z53.9 Procedure and treatment not carried out, unspecified reason (principal); M43.16 Spondylolisthesis, lumbar region
CPT/HCPCS: 96375; 96413; 96415; A4222; J1200; J2920; J7050; Q5104

== ENCOUNTER → 2023-09-09 09:06 | Outpatient (BNVA) | payer MEDICARE, BC, SELFPAY | PROVIDERS: PCP Internal Medicine; Visit Provider Internal Medicine | DX: E04.2 Nontoxic multinodular goiter (principal); E11.9 Type 2 diabetes mellitus without complications; E78.2 Mixed hyperlipidemia; E55.9 Vitamin D deficiency, unspecified; Z79.899 Other long term (current) drug therapy | CPT/HCPCS: 99204 ==

== ENCOUNTER 2023-09-16 10:00 | Oncology outpatient (recurring) (ONCR) | payer MEDICARE, BC, SELFPAY ==
[2023-09-16] VITALS (7 sets, daily range): BP systolic 141–175; BP diastolic 83–89; PULSE 75–89; RESP 18; TEMP 36.5–36.8; O2SAT 90–96
[2023-09-16 10:47] LABS: Basophils # 0.1 10^3/uL (0.0-0.1); Basophils % 1.9 %; Eosinophils # 0.2 10^3/uL (0.0-0.8); Eosinophils % 2.5 %; Hematocrit 43.9 % (36-47); Lymphocytes # 2.6 10^3/uL (0.8-4.8); Lymphocytes % 41.3 %; Mean Corpuscular HGB Conc 32.8 g/dL (30-55); Mean Corpuscular Hemoglobin 31.8 pg (27-33); Mean Corpuscular Volume 96.9 fl (85-98); Mean Platelet Volume 10.2 fL (7.4-10.4); Monocytes # 0.9 10^3/uL (0.2-0.9); Monocytes % 13.6 %; Neutrophils # 2.56 10^3/uL (1.8-7.7); Neutrophils % 40.4 %; Nucleated Red Blood Cells % 0 %; Platelet Count 262 10^3/cmm (157-399); Red Blood Count 4.53 10^6/uL (3.85-5.65); Red Cell Distribution Width 12.7 % (12.1-15.1); White Blood Count 6.34 10^3/uL (3.29-11.43)
[2023-09-16 10:49] LABS: Erythrocyte Sedimentation Rate 9 mm/hr (0-15)
[2023-09-16] MEDS: diphenhydrAMINE 50 mg/mL SDV 1mL 25 MG IVP (10:50)
[2023-09-16] MEDS: acetaminophen 325 mg Tablet 650 MG PO (10:50)
[2023-09-16] MEDS: sodium chloride 0.9% 250 ML 75 ML IV (10:51)
[2023-09-16] MEDS: methylPREDNISolone sod succ 40 mg/mL INJ IVP (10:58)
[2023-09-16] MEDS: INFLIXIMAB ABDA IV (11:22)
[2023-09-16] MEDS: SODIUM CHLORIDE 0.9% IV (11:22)
[2023-09-16 11:56] LABS: Alanine Aminotransferase 69 U/L (0-33); Albumin Level 4.1 g/dL (3.5-5.2); Alkaline Phosphatase 93 U/L (35-105); Creatinine Clr Calc Pharmacy 83.5131; Globulin 2.4 g/dL (1.3-4.6); Glomerular Filtration Rate 99.1 mL/min (90-130); Total Bilirubin 0.4 mg/dL (0.15-1.2); Total Protein 6.5 g/dL (6.6-8.7)
[2023-09-16 12:00] LABS: Aspartate Amino Transferase 53 U/L (0-32)
== END 2023-09-26 23:59 | disposition home or self-care (01) ==
PROVIDERS: PCP Internal Medicine; Visit Provider Internal Medicine Rheumatology
DX: M43.16 Spondylolisthesis, lumbar region (principal); M19.90 Unspecified osteoarthritis, unspecified site
CPT/HCPCS: 80076; 82565; 85025; 85651; 96375; 96413; 96415; A4222; J1200; J2920; J7050; Q5104

== ENCOUNTER → 2023-10-19 09:52 | Outpatient (BNVA) | payer MEDICARE, BC, SELFPAY | PROVIDERS: PCP Internal Medicine; Visit Provider Anesthesiology Pain Medicine | DX: M51.36 Other intervertebral disc degeneration, lumbar region; M43.17 Spondylolisthesis, lumbosacral region; M43.16 Spondylolisthesis, lumbar region; M47.812 Spondylosis without myelopathy or radiculopathy, cervical region; M50.30 Other cervical disc degeneration, unspecified cervical region | CPT/HCPCS: 99214 ==

== ENCOUNTER → 2023-10-25 10:58 | Outpatient (BNVA) | payer MEDICARE, BC, SELFPAY | PROVIDERS: PCP Internal Medicine; Visit Provider Anesthesiology Pain Medicine | DX: M79.7 Fibromyalgia (principal); M51.36 Other intervertebral disc degeneration, lumbar region; M50.30 Other cervical disc degeneration, unspecified cervical region; M47.812 Spondylosis without myelopathy or radiculopathy, cervical region; M43.17 Spondylolisthesis, lumbosacral region; M43.16 Spondylolisthesis, lumbar region | CPT/HCPCS: 20553; 99214; J1010; J3490 ==

== ENCOUNTER 2023-11-16 12:26 | Outpatient (CLI) | payer MEDICARE, BC, SELFPAY ==
[2023-11-16 13:11] LABS: Basophils # 0.1 10^3/uL (0.0-0.1); Basophils % 0.8 %; Eosinophils # 0.1 10^3/uL (0.0-0.8); Eosinophils % 1.7 %; Hematocrit 43.1 % (36-47); Lymphocytes # 2.6 10^3/uL (0.8-4.8); Lymphocytes % 36.4 %; Mean Corpuscular Hemoglobin 30.1 pg (27-33); Mean Corpuscular Volume 94.1 fl (85-98); Mean Platelet Volume 9.9 fL (7.4-10.4); Monocytes # 0.5 10^3/uL (0.2-0.9); Monocytes % 7.3 %; Neutrophils # 3.82 10^3/uL (1.8-7.7); Neutrophils % 53.7 %; Nucleated Red Blood Cells % 0 %; Platelet Count 244 10^3/cmm (157-399); Red Blood Count 4.58 10^6/uL (3.85-5.65); Red Cell Distribution Width 12.3 % (12.1-15.1); White Blood Count 7.12 10^3/uL (3.29-11.43)
[2023-11-16 13:28] LABS: Alanine Aminotransferase 44 U/L (0-33); Albumin Level 3.9 g/dL (3.5-5.2); Alkaline Phosphatase 111 U/L (35-105); Aspartate Amino Transferase 31 U/L (0-32); C Reactive Protein 17.6 mg/L (0.0-4.9); Globulin 2.8 g/dL (1.3-4.6); Total Bilirubin 0.2 mg/dL (0.15-1.2); Total Protein 6.7 g/dL (6.6-8.7)
== END 2023-11-16 12:27 | disposition home or self-care (01) ==
LOC: LAB 12:27
PROVIDERS: Absent Provider Internal Medicine; PCP Internal Medicine; Visit Provider Internal Medicine Rheumatology
DX: M19.90 Unspecified osteoarthritis, unspecified site (principal); M79.7 Fibromyalgia; Z79.899 Other long term (current) drug therapy
CPT/HCPCS: 36415; 80076; 82565; 85025; 86140

== ENCOUNTER 2023-11-18 08:59 | Oncology outpatient (recurring) (ONCR) | payer MEDICARE, BC, SELFPAY ==
[2023-11-18] VITALS (8 sets, daily range): BP systolic 137–168; BP diastolic 79–95; PULSE 73–94; RESP 16–17; TEMP 36.1–36.9; O2SAT 93–96
[2023-11-18] MEDS: sodium chloride 0.9% 250 ML 45 ML IV (10:09)
[2023-11-18] MEDS: diphenhydrAMINE 50 mg/mL SDV 1mL 25 MG IVP (10:10)
[2023-11-18] MEDS: acetaminophen 325 mg Tablet 650 MG PO (10:10)
[2023-11-18] MEDS: methylPREDNISolone sod succ 40 mg/mL INJ IVP (10:12)
[2023-11-18] MEDS: INFLIXIMAB ABDA IV (10:45)
[2023-11-18] MEDS: SODIUM CHLORIDE 0.9% IV (10:45)
== END 2023-11-26 23:59 | disposition home or self-care (01) ==
PROVIDERS: PCP Internal Medicine; Visit Provider Internal Medicine Rheumatology
DX: M43.16 Spondylolisthesis, lumbar region (principal); Z79.899 Other long term (current) drug therapy; Z71.89 Other specified counseling; Z15.89 Genetic susceptibility to other disease
CPT/HCPCS: 96375; 96413; 96415; 99214; A4222; J1200; J2919; J7050; Q5104

== ENCOUNTER → 2023-12-01 11:10 | Outpatient (BNVA) | payer MEDICARE, BC, SELFPAY | PROVIDERS: PCP Internal Medicine; Visit Provider Anesthesiology Pain Medicine | DX: M51.36 Other intervertebral disc degeneration, lumbar region; M43.17 Spondylolisthesis, lumbosacral region; M43.16 Spondylolisthesis, lumbar region; M47.812 Spondylosis without myelopathy or radiculopathy, cervical region; M50.30 Other cervical disc degeneration, unspecified cervical region | CPT/HCPCS: 99214 ==

== ENCOUNTER 2023-12-24 07:55 | Oncology outpatient (recurring) (ONCR) | payer MEDICARE, BC, SELFPAY | END 2023-12-26 23:59 | disposition home or self-care (01) | PROVIDERS: PCP Internal Medicine; Visit Provider Internal Medicine Rheumatology | DX: Z53.9 Procedure and treatment not carried out, unspecified reason ==

== ENCOUNTER 2024-01-05 10:03 | Oncology outpatient (recurring) (ONCR) | payer MEDICARE, BC, SELFPAY ==
[2024-01-05] MEDS: acetaminophen 325 mg Tablet 650 MG PO (10:53)
[2024-01-05] MEDS: sodium chloride 0.9% 250 ML 75 ML IV (10:54)
[2024-01-05] MEDS: diphenhydrAMINE 50 mg/mL SDV 1mL 25 MG IVP (10:55)
[2024-01-05] MEDS: methylPREDNISolone sod succ 40 mg/mL INJ IVP (10:59)
[2024-01-05] MEDS: infliximab-abda 500 MG in sodium chloride 0.9% 250 ML 10 MG IV (11:08)
[2024-01-05 11:17] LABS: Basophils # 0.1 10^3/uL (0.0-0.1); Basophils % 1.6 %; Eosinophils # 0.1 10^3/uL (0.0-0.8); Eosinophils % 1.6 %; Hematocrit 41.3 % (36-47); Lymphocytes # 1.9 10^3/uL (0.8-4.8); Lymphocytes % 39.5 %; Mean Corpuscular HGB Conc 32.7 g/dL (30-55); Mean Corpuscular Hemoglobin 30.1 pg (27-33); Mean Platelet Volume 10.6 fL (7.4-10.4); Monocytes # 0.6 10^3/uL (0.2-0.9); Monocytes % 11.6 %; Neutrophils # 2.23 10^3/uL (1.8-7.7); Neutrophils % 45.5 %; Nucleated Red Blood Cells % 0 %; Platelet Count 203 10^3/cmm (157-399); Red Blood Count 4.49 10^6/uL (3.85-5.65); Red Cell Distribution Width 13.2 % (12.1-15.1); White Blood Count 4.91 10^3/uL (3.29-11.43)
[2024-01-05 11:25] VITALS: BP 125/77; PULSE 80; RESP 18; TEMP 36.4; O2SAT 97
[2024-01-05 11:40] VITALS: BP 124/78; PULSE 87; RESP 16; TEMP 36.4; O2SAT 98
[2024-01-05 11:50] LABS: Erythrocyte Sedimentation Rate 20 mm/hr (0-15)
[2024-01-05 12:08] VITALS: BP 119/73; PULSE 82; RESP 16; O2SAT 91
[2024-01-05 12:20] VITALS: BP 120/71; PULSE 87; RESP 16; O2SAT 92
[2024-01-05 12:55] VITALS: BP 123/76; PULSE 79; RESP 17; O2SAT 92
[2024-01-05 16:05] VITALS: BP 121/81; PULSE 81; RESP 17; TEMP 36.6; O2SAT 93
== END 2024-01-26 23:59 | disposition home or self-care (01) ==
PROVIDERS: PCP Internal Medicine; Visit Provider Internal Medicine Rheumatology
DX: M43.16 Spondylolisthesis, lumbar region (principal)
CPT/HCPCS: 85025; 85651; 96413; 96415; A4222; J1200; J2919; J7050; Q5104

== ENCOUNTER → 2024-02-11 10:55 | Outpatient (BNVA) | payer MEDICARE, BC, SELFPAY | PROVIDERS: PCP Internal Medicine; Visit Provider Internal Medicine | DX: Z79.899 Other long term (current) drug therapy (principal); E04.2 Nontoxic multinodular goiter; E11.9 Type 2 diabetes mellitus without complications; E55.9 Vitamin D deficiency, unspecified; E78.2 Mixed hyperlipidemia; Z79.84 Long term (current) use of oral hypoglycemic drugs | CPT/HCPCS: 36415; 80053; 80061; 82044; 83036; 84439; 84443; 99214 ==

== ENCOUNTER 2024-02-16 09:52 | Oncology outpatient (recurring) (ONCR) | payer MEDICARE, BC, SELFPAY ==
[2024-02-16] VITALS (7 sets, daily range): BP systolic 138–180; BP diastolic 77–90; PULSE 75–94; RESP 16–18; TEMP 36.2–36.9; O2SAT 93–96
[2024-02-16] MEDS: sodium chloride 0.9% 250 ML 75 ML IV (10:25)
[2024-02-16] MEDS: acetaminophen 325 mg Tablet 650 MG PO (10:28)
[2024-02-16] MEDS: methylPREDNISolone sod succ 40 mg/mL INJ IVP (10:29)
[2024-02-16] MEDS: diphenhydrAMINE 50 mg/mL SDV 1mL 25 MG IVP (10:30)
[2024-02-16] MEDS: SODIUM CHLORIDE 0.9% IV (11:08)
[2024-02-16] MEDS: INFLIXIMAB ABDA IV (11:08)
== END 2024-02-26 23:55 | disposition home or self-care (01) ==
LOC: ONCMED 09:53
PROVIDERS: PCP Internal Medicine; Visit Provider Internal Medicine Rheumatology
DX: M43.16 Spondylolisthesis, lumbar region (principal); Z79.899 Other long term (current) drug therapy
CPT/HCPCS: 96375; 96413; 96415; A4222; J1200; J2919; J7050; Q5104

== ENCOUNTER 2024-04-04 10:30 | Oncology outpatient (recurring) (ONCR) | payer MEDICARE, BC, SELFPAY ==
[2024-04-04] VITALS (8 sets, daily range): BP systolic 140–167; BP diastolic 82–98; PULSE 80–88; RESP 16; TEMP 36.4–36.9; O2SAT 90–95
[2024-04-04] MEDS: diphenhydrAMINE 50 mg/mL SDV 1mL 25 MG IVP (11:15)
[2024-04-04] MEDS: sodium chloride 0.9% 250 ML 75 ML IV (11:15)
[2024-04-04 11:16] LABS: Basophils # 0.1 10^3/uL (0.0-0.1); Basophils % 1.3 %; Eosinophils # 0.1 10^3/uL (0.0-0.8); Eosinophils % 1.5 %; Hematocrit 41.9 % (36-47); Lymphocytes # 2.4 10^3/uL (0.8-4.8); Lymphocytes % 39.8 %; Mean Corpuscular HGB Conc 33.2 g/dL (30-55); Mean Corpuscular Volume 90.3 fl (85-98); Mean Platelet Volume 10.8 fL (7.4-10.4); Monocytes # 0.6 10^3/uL (0.2-0.9); Monocytes % 9.6 %; Neutrophils # 2.87 10^3/uL (1.8-7.7); Neutrophils % 47.3 %; Nucleated Red Blood Cells % 0 %; Platelet Count 279 10^3/cmm (157-399); Red Blood Count 4.64 10^6/uL (3.85-5.65); Red Cell Distribution Width 12.8 % (12.1-15.1); White Blood Count 6.06 10^3/uL (3.29-11.43)
[2024-04-04] MEDS: acetaminophen 325 mg Tablet 650 MG PO (11:16)
[2024-04-04] MEDS: methylPREDNISolone sod succ 40 mg/mL INJ IVP (11:16)
[2024-04-04 11:39] LABS: Erythrocyte Sedimentation Rate 25 mm/hr (0-15)
[2024-04-04] MEDS: INFLIXIMAB ABDA IV (11:55)
[2024-04-04] MEDS: SODIUM CHLORIDE 0.9% IV (11:55)
== END 2024-04-27 23:59 | disposition home or self-care (01) ==
PROVIDERS: PCP Internal Medicine; Visit Provider Internal Medicine Rheumatology
DX: M43.16 Spondylolisthesis, lumbar region (principal); Z79.899 Other long term (current) drug therapy; M19.90 Unspecified osteoarthritis, unspecified site
CPT/HCPCS: 36415; 85025; 85651; 96375; 96413; 96415; A4222; J1200; J2919; J7050; Q5104

== ENCOUNTER → 2024-04-18 14:30 | Outpatient (BNVA) | payer MEDICARE, BC, SELFPAY | PROVIDERS: PCP Internal Medicine; Referring Provider Internal Medicine; Visit Provider Internal Medicine Rheumatology | DX: M46.90 Unspecified inflammatory spondylopathy, site unspecified (principal); M19.90 Unspecified osteoarthritis, unspecified site; Z79.899 Other long term (current) drug therapy; Z71.85 Encounter for immunization safety counseling; Z15.89 Genetic susceptibility to other disease | CPT/HCPCS: 99214 ==

== ENCOUNTER 2024-05-16 10:29 | Oncology outpatient (recurring) (ONCR) | payer MEDICARE, BC, SELFPAY ==
[2024-05-16] VITALS (8 sets, daily range): BP systolic 119–150; BP diastolic 66–92; PULSE 80–87; RESP 16–17; TEMP 36.1–37.2; O2SAT 90–96
[2024-05-16] MEDS: sodium chloride 0.9% 250 ML 75 ML IV (11:14)
[2024-05-16] MEDS: diphenhydrAMINE 50 mg/mL SDV 1mL 25 MG IVP (11:16)
[2024-05-16] MEDS: acetaminophen 325 mg Tablet 650 MG PO (11:18)
[2024-05-16] MEDS: methylPREDNISolone sod succ 40 mg/mL INJ IVP (11:18)
[2024-05-16] MEDS: infliximab-abda 500 MG in sodium chloride 0.9% 250 ML 10 MG IV (11:46)
== END 2024-05-27 23:59 | disposition home or self-care (01) ==
PROVIDERS: PCP Internal Medicine; Visit Provider Internal Medicine Rheumatology
DX: M43.16 Spondylolisthesis, lumbar region (principal); Z79.899 Other long term (current) drug therapy
CPT/HCPCS: 96375; 96413; 96415; A4222; J1200; J2919; J7050; Q5104

== ENCOUNTER 2024-06-27 10:24 | Oncology outpatient (recurring) (ONCR) | payer MEDICARE, BC, SELFPAY ==
[2024-06-27 10:55] VITALS: BP 159/95; PULSE 83; RESP 16; TEMP 36.4; O2SAT 95
[2024-06-27] MEDS: sodium chloride 0.9% 250 ML 75 ML IV (12:26)
[2024-06-27] MEDS: acetaminophen 325 mg Tablet 650 MG PO (12:27)
[2024-06-27] MEDS: diphenhydrAMINE 50 mg/mL SDV 1mL 25 MG IVP (12:31)
[2024-06-27] MEDS: methylPREDNISolone sod succ 40 mg/mL INJ IVP (12:35)
[2024-06-27] MEDS: infliximab-abda 540 MG in sodium chloride 0.9% 250 ML 250 MG IV (13:20)
[2024-06-27 14:40] VITALS: BP 138/77; PULSE 80; TEMP 36.3; O2SAT 96
== END 2024-06-27 23:59 | disposition home or self-care (01) ==
PROVIDERS: PCP Internal Medicine; Visit Provider Internal Medicine Rheumatology
DX: M43.16 Spondylolisthesis, lumbar region (principal); Z79.899 Other long term (current) drug therapy
CPT/HCPCS: 96375; 96413; A4222; J1200; J2919; J7050; Q5104

== ENCOUNTER 2024-08-02 10:24 | Oncology outpatient (recurring) (ONCR) | payer MEDICARE, BC, SELFPAY ==
[2024-08-02] MEDS: acetaminophen 325 mg Tablet 650 MG PO (11:34)
[2024-08-02] MEDS: diphenhydrAMINE 50 mg/mL SDV 1mL 25 MG IVP (11:35)
[2024-08-02] MEDS: methylPREDNISolone sod succ 40 mg/mL INJ IVP (11:36)
[2024-08-02] MEDS: infliximab-abda 500 MG in sodium chloride 0.9% 250 ML 250 MG IV (12:00)
[2024-08-02 13:14] VITALS: BP 121/69; PULSE 77; O2SAT 91
== END 2024-08-25 23:59 | disposition home or self-care (01) ==
PROVIDERS: PCP Internal Medicine; Visit Provider Internal Medicine Rheumatology
DX: M43.16 Spondylolisthesis, lumbar region (principal); Z79.899 Other long term (current) drug therapy
CPT/HCPCS: 96375; 96413; A4222; J1200; J2919; J7050; Q5104

== ENCOUNTER → 2024-09-12 11:55 | Outpatient (BNVA) | payer MEDICARE, BC, SELFPAY | PROVIDERS: PCP Internal Medicine; Visit Provider Internal Medicine | DX: E55.9 Vitamin D deficiency, unspecified (principal); E11.9 Type 2 diabetes mellitus without complications; E04.2 Nontoxic multinodular goiter; E78.2 Mixed hyperlipidemia; Z79.899 Other long term (current) drug therapy | CPT/HCPCS: 36415; 80053; 80061; 82044; 83036; 83721; 99214 ==

== ENCOUNTER 2024-09-21 14:43 | Outpatient (CLI) | payer MEDICARE, BC, SELFPAY ==
--- NOTE | 2024-09-21 14:48 | US_ITS ---
WS: [email or web address] ULTRASOUND THYROID TECHNIQUE: Ultrasound of the thyroid. CLINICAL INFORMATION: GOITER COMPARISON: 2023 FINDINGS: Thyroid: Enlarged multinodular thyroid with heterogeneous echotexture. Largest solid heterogeneous nodule RIGHT mid thyroid measuring 2.3 x 2.1 cm cm Smaller nodule in the superior pole measuring 1.7 x 1.8 cm is stable Largest solid heterogeneous nodule LEFT mid thyroid measures 2.7 x 1.9 cm is better defined today but appears stable Stable isthmus nodule measuring 2.1 x 1.6 x 1.1 cm Right thyroid lobe: 5.7 cm x 2.5 cm x 2.5 cm Left thyroid lobe: 4.7 cm x 2.9 cm x 2.4 cm. Isthmus: 0.9 mm. Cervical lymphadenopathy: None. US/US thyroid [id number] IMPRESSION: 1. Enlarged multinodular thyroid with heterogeneous echotexture compatible wit h multinodular goiter. This is stable in appearance compared to 2023. 2. Bilateral dominant nodules are stable.
== END 2024-09-21 14:44 | disposition home or self-care (01) ==
LOC: RAD 14:46
PROVIDERS: PCP Internal Medicine; Visit Provider Internal Medicine
DX: E04.2 Nontoxic multinodular goiter (principal)
CPT/HCPCS: 76536

== ENCOUNTER 2024-09-27 10:23 | Oncology outpatient (recurring) (ONCR) | payer MEDICARE, BC, SELFPAY ==
[2024-09-27 11:33] LABS: Basophils # 0.1 10^3/uL (0.0-0.1); Basophils % 1.5 %; Eosinophils # 0.1 10^3/uL (0.0-0.8); Eosinophils % 1.7 %; Hematocrit 42.4 % (36-47); Lymphocytes # 1.7 10^3/uL (0.8-4.8); Lymphocytes % 31.6 %; Mean Corpuscular Hemoglobin 30.2 pg (27-33); Mean Corpuscular Volume 91.4 fl (85-98); Mean Platelet Volume 10.4 fL (7.4-10.4); Monocytes # 0.4 10^3/uL (0.2-0.9); Monocytes % 7.9 %; Neutrophils # 3.01 10^3/uL (1.8-7.7); Neutrophils % 56.7 %; Nucleated Red Blood Cells % 0 %; Platelet Count 220 10^3/cmm (157-399); Red Blood Count 4.64 10^6/uL (3.85-5.65); Red Cell Distribution Width 12.5 % (12.1-15.1); White Blood Count 5.31 10^3/uL (3.29-11.43)
[2024-09-27 11:35] LABS: Erythrocyte Sedimentation Rate 14 mm/hr (0-15)
[2024-09-27] MEDS: sodium chloride 0.9% 250 ML 75 ML IV (11:38)
[2024-09-27] MEDS: acetaminophen 325 mg Tablet 650 MG PO (11:39)
[2024-09-27] MEDS: diphenhydrAMINE 50 mg/mL SDV 1mL 25 MG IVP (11:41)
[2024-09-27] MEDS: methylPREDNISolone sod succ 40 mg/mL INJ IVP (11:46)
[2024-09-27] MEDS: infliximab-abda 500 MG in sodium chloride 0.9% 250 ML 250 MG IV (12:20)
[2024-09-27 13:53] VITALS: BP 144/79; PULSE 77; RESP 16; TEMP 36.5; O2SAT 94
== END 2024-10-25 23:59 | disposition home or self-care (01) ==
PROVIDERS: Internal Medicine Rheumatology; PCP Internal Medicine; Visit Provider Internal Medicine
DX: M43.16 Spondylolisthesis, lumbar region (principal); Z79.899 Other long term (current) drug therapy
CPT/HCPCS: 85025; 85651; 96375; 96413; A4222; J1200; J2919; J7050; J9999; Q5104

== ENCOUNTER → 2024-10-03 14:35 | Outpatient (BNVA) | payer MEDICARE, BC, SELFPAY | PROVIDERS: PCP Internal Medicine; Visit Provider Internal Medicine Rheumatology | DX: M46.90 Unspecified inflammatory spondylopathy, site unspecified (principal); M19.90 Unspecified osteoarthritis, unspecified site; Z79.899 Other long term (current) drug therapy; Z71.89 Other specified counseling; Z15.89 Genetic susceptibility to other disease | CPT/HCPCS: 99214 ==

== ENCOUNTER 2024-11-08 10:24 | Oncology outpatient (recurring) (ONCR) | payer MEDICARE, BC, SELFPAY ==
[2024-11-08] MEDS: sodium chloride 0.9% 250 ML 75 ML IV (11:58)
[2024-11-08] MEDS: acetaminophen 325 mg Tablet 650 MG PO (11:59)
[2024-11-08] MEDS: diphenhydrAMINE 50 mg/mL SDV 1mL 25 MG IVP (12:00)
[2024-11-08] MEDS: methylPREDNISolone sod succ 40 mg/mL INJ IVP (12:06)
[2024-11-08] MEDS: infliximab-abda 500 MG in sodium chloride 0.9% 250 ML 300 MG IV (12:29)
== END 2024-11-25 23:59 | disposition home or self-care (01) ==
PROVIDERS: PCP Internal Medicine; Visit Provider Internal Medicine
DX: M43.16 Spondylolisthesis, lumbar region (principal); Z79.899 Other long term (current) drug therapy
CPT/HCPCS: 96375; 96413; A4222; J1200; J2919; J7050; J9999; Q5104

== ENCOUNTER 2025-01-03 10:27 | Oncology outpatient (recurring) (ONCR) | payer MEDICARE, OTHER, SELFPAY ==
[2025-01-03 11:12] VITALS: BP 167/74; PULSE 86; RESP 18; TEMP 36.6; O2SAT 92
[2025-01-03] MEDS: diphenhydrAMINE 50 mg/mL SDV 1mL 25 MG IVP (11:30)
[2025-01-03] MEDS: methylPREDNISolone sod succ 40 mg/mL INJ IVP (11:31)
[2025-01-03 11:32] LABS: Hematocrit 43.8 % (36-47); Hemoglobin 14.60 g/dL (11.27-16.99); Mean Corpuscular HGB Conc 33.3 g/dL (30-55); Mean Corpuscular Hemoglobin 30.4 pg (27-33); Mean Corpuscular Volume 91.1 fl (85-98); Nucleated Red Blood Cells % 0 %; Platelet Count 251 10^3/cmm (157-399); Red Blood Count 4.81 10^6/uL (3.85-5.65); White Blood Count 6.58 10^3/uL (3.29-11.43)
[2025-01-03] MEDS: infliximab-abda 500 MG in sodium chloride 0.9% 250 ML 300 MG IV (12:00)
[2025-01-03 13:05] VITALS: BP 134/75; PULSE 79; TEMP 36.7; O2SAT 96
== END 2025-01-25 23:59 | disposition home or self-care (01) ==
PROVIDERS: Internal Medicine Rheumatology; PCP Internal Medicine; Visit Provider Internal Medicine
DX: M43.16 Spondylolisthesis, lumbar region (principal); Z79.899 Other long term (current) drug therapy; M46.90 Unspecified inflammatory spondylopathy, site unspecified
CPT/HCPCS: 85025; 85651; 96375; 96413; A4222; J1200; J2919; J7050; J9999; Q5104

== ENCOUNTER → 2025-01-16 11:26 | Outpatient (BNVA) | payer MEDICARE, OTHER, SELFPAY | PROVIDERS: PCP Internal Medicine; Visit Provider Internal Medicine Rheumatology | DX: M46.90 Unspecified inflammatory spondylopathy, site unspecified (principal); M19.90 Unspecified osteoarthritis, unspecified site; Z79.899 Other long term (current) drug therapy; Z71.85 Encounter for immunization safety counseling; Z15.89 Genetic susceptibility to other disease; M50.322 Other cervical disc degeneration at C5-C6 level | CPT/HCPCS: 72040; 99214 ==

== ENCOUNTER 2025-02-14 10:07 | Oncology outpatient (recurring) (ONCR) | payer MEDICARE, OTHER, SELFPAY ==
[2025-02-14] VITALS (7 sets, daily range): BP systolic 120–145; BP diastolic 72–83; PULSE 78–89; RESP 16–18; TEMP 36–36.4; O2SAT 96–99
[2025-02-14] MEDS: diphenhydrAMINE 50 mg/mL SDV 1mL 25 MG IVP (11:43)
[2025-02-14] MEDS: methylPREDNISolone sod succ 40 mg/mL INJ IVP (11:49)
[2025-02-14] MEDS: infliximab-abda 1,000 MG in sodium chloride 0.9% 250 ML 10 MG IV (12:15)
[2025-02-14 13:51] LABS: Alanine Aminotransferase 25 U/L (0-33); Albumin Level 4.2 g/dL (3.5-5.2); Alkaline Phosphatase 120 U/L (35-105); Aspartate Amino Transferase 21 U/L (0-32); Cholesterol 188 mg/dL (0-200); Creatinine Clr Calc Pharmacy 80.3293; Globulin 3.0 g/dL (1.3-4.6); HDL Cholesterol 59 mg/dL (60-100); Total Protein 7.2 g/dL (6.6-8.7); Triglycerides 157 mg/dL (0-150)
[2025-02-14 15:18] LABS: Creatinine Urine, Random 309 mg/dL (28-217); Microalbum Creatinine Ratio Ur 10 mg/dL (0-20)
[2025-02-16 02:01] LABS: Estmated Average Glucose 160; Hemoglobin A1C 7.2 % (4.0-6.0)
== END 2025-02-25 23:59 | disposition home or self-care (01) ==
PROVIDERS: Internal Medicine Rheumatology; PCP Internal Medicine; Visit Provider Internal Medicine
DX: M45.9 Ankylosing spondylitis of unspecified sites in spine (principal); Z79.899 Other long term (current) drug therapy; E55.9 Vitamin D deficiency, unspecified; E11.9 Type 2 diabetes mellitus without complications; E04.2 Nontoxic multinodular goiter; E78.2 Mixed hyperlipidemia
CPT/HCPCS: 80061; 80076; 82044; 82565; 83036; 85651; 86140; 96375; 96413; 96415; A4222; J1200; J2919; J7050; J9999; Q5104

== ENCOUNTER → 2025-03-13 10:25 | Outpatient (BNVA) | payer MEDICARE, OTHER, SELFPAY | PROVIDERS: PCP Internal Medicine; Visit Provider Internal Medicine | DX: E04.2 Nontoxic multinodular goiter (principal); E11.9 Type 2 diabetes mellitus without complications; E78.2 Mixed hyperlipidemia; E55.9 Vitamin D deficiency, unspecified; B37.89 Other sites of candidiasis | CPT/HCPCS: 99214 ==

== ENCOUNTER 2025-03-28 10:20 | Oncology outpatient (recurring) (ONCR) | payer MEDICARE, OTHER, SELFPAY ==
[2025-03-28] VITALS (7 sets, daily range): BP systolic 113–137; BP diastolic 75–78; PULSE 75–90; RESP 16–17; TEMP 36.3–36.6; O2SAT 92–94
[2025-03-28] MEDS: diphenhydrAMINE 50 mg/mL SDV 1mL 25 MG IVP (10:57)
[2025-03-28] MEDS: methylPREDNISolone sod succ 40 mg/mL INJ IVP (11:01)
[2025-03-28] MEDS: infliximab-abda 1,000 MG in sodium chloride 0.9% 150 ML 10 MG IV (11:36)
== END 2025-04-27 23:59 | disposition home or self-care (01) ==
PROVIDERS: PCP Internal Medicine; Visit Provider Internal Medicine
DX: M45.9 Ankylosing spondylitis of unspecified sites in spine (principal); Z79.899 Other long term (current) drug therapy
CPT/HCPCS: 96375; 96413; 96415; A4222; J1200; J2919; J9999; Q5104

== ENCOUNTER 2025-05-04 08:39 | Outpatient (CLI) | payer MEDICARE, OTHER, SELFPAY ==
--- NOTE | 2025-05-04 08:43 | CT_ITS ---
WS: [id number] CT ABDOMEN AND PELVIS WITH CONTRAST HISTORY: RUQ ABDOMINAL PAIN TECHNIQUE: Imaging performed of the abdomen and pelvis with IV contrast. Single phase imaging of the abdomen. Coronal and sagittal reformats are submitted. All CT scans at [facility] use at least one of these dose optimization techniques: automated exposure control; mA and/or kV adjustment per patient size (includes targeted exams where dose is matched to clinical indication); or iterative reconstruction. IV CONTRAST: Omnipaque 350; 100 mL IV. Oral contrast: No DLP: 801.73 mGy.cm COMPARISON: 01/04/2021 Lower thorax: Lung bases are clear. Heart is normal size. Small hiatal hernia. Liver/biliary system: Normal size with no intrahepatic dilatation. Gallbladder: Prior cholecystectomy. Pancreas: Normal size pancreas and pancreatic duct. No adjacent inflammation. Spleen: Normal size spleen. No mass or infarct. Adrenal glands: Normal. Right kidney: Normal. Left kidney: Normal. Aorta: Mild atherosclerosis with no aneurysm. Mild stenosis involving origin of the celiac axis but no occlusions. Retroaortic LEFT renal vein. Lymphadenopathy: None. Free fluid: None. GI tract: No GI tract obstruction. No small bowel obstruction. The appendix is not identified but there are no secondary findings of appendicitis. Mild constipation. Distal colon and sigmoid diverticular disease. No acute diverticulitis. Abdominal wall: Fat containing umbilical hernia. Pelvis: Nondistended urinary bladder. Prior hysterectomy. LEFT adnexal cyst measures 3.5 x 2.2 cm. Probably an ovarian cyst which is stable since 01/04/2021. Bones: L4 anterolisthesis by 5 mm. Degenerative facet disease at L4-5 and L5-S1. CT/CT abdomen pelvis w con* [id number] IMPRESSION: 1. Prior cholecystectomy. 2. No GI tract obstruction. 3. Diverticular disease in the descending and sigmoid colon without acute dive rticulitis. 4. No renal obstruction. 5. Appendix is not identified but there is no evidence for appendicitis. 6. Long-term stability LEFT ovarian cyst.
[2025-05-04 09:30] LABS: Blood Urea Nitrogen 10 mg/dL (8-23)
[2025-05-04] MEDS: iohexol 350 mg/mL 500 mL Btl (per mL) IV (09:36)
== END 2025-05-04 08:40 | disposition home or self-care (01) ==
LOC: RAD 08:40
PROVIDERS: PCP Internal Medicine; Visit Provider Internal Medicine
DX: R10.11 Right upper quadrant pain (principal); K57.30 Diverticulosis of large intestine without perforation or abscess without bleeding; N83.292 Other ovarian cyst, left side; Z90.49 Acquired absence of other specified parts of digestive tract
CPT/HCPCS: 74177; 82565; 84520

== ENCOUNTER 2025-05-09 10:20 | Oncology outpatient (recurring) (ONCR) | payer MEDICARE, SELFPAY ==
[2025-05-09 11:09] LABS: Hematocrit 43.2 % (36-47); Hemoglobin 14.60 g/dL (11.27-16.99); Mean Corpuscular HGB Conc 33.8 g/dL (30-55); Mean Corpuscular Hemoglobin 30.5 pg (27-33); Mean Corpuscular Volume 90.4 fl (85-98); Nucleated Red Blood Cells % 0 %; Platelet Count 284 10^3/cmm (157-399); Red Blood Count 4.78 10^6/uL (3.85-5.65); White Blood Count 9.68 10^3/uL (3.29-11.43)
[2025-05-09 11:29] LABS: Alanine Aminotransferase 23 U/L (0-33); Albumin Level 4.2 g/dL (3.5-5.2); Alkaline Phosphatase 116 U/L (35-105); Blood Urea Nitrogen 12 mg/dL (8-23); Calcium 9.4 mg/dL (8.5-10.5); Carbon Dioxide 21 mmol/L (22-29); Chloride 104 mmol/L (98-107); Globulin 2.6 g/dL (1.3-4.6); Glucose 126 mg/dL (65-115); Osmolality Calculated 287 mOsm/kg (285-295); Sodium 138 mmol/L (136-145); Total Protein 6.8 g/dL (6.6-8.7)
[2025-05-09 11:30] LABS: Anion Gap 17.0 (5-19); Potassium 4.0 mmol/L (3.5-5.1)
[2025-05-09 11:31] LABS: Aspartate Amino Transferase 20 U/L (0-32)
[2025-05-09] MEDS: diphenhydrAMINE 50 mg/mL SDV 1mL 25 MG IVP (11:43)
[2025-05-09] MEDS: methylPREDNISolone sod succ 40 mg/mL INJ IVP (11:48)
[2025-05-09] MEDS: infliximab-abda 1,000 MG in sodium chloride 0.9% 150 ML 250 MG IV (12:11)
== END 2025-05-27 23:59 | disposition home or self-care (01) ==
PROVIDERS: Internal Medicine Rheumatology; PCP Internal Medicine; Visit Provider Internal Medicine
DX: M45.9 Ankylosing spondylitis of unspecified sites in spine (principal); Z79.899 Other long term (current) drug therapy; M46.90 Unspecified inflammatory spondylopathy, site unspecified
CPT/HCPCS: 80053; 85025; 86140; 96375; 96413; A4222; J1200; J2919; J7050; J9999; Q5104

== ENCOUNTER → 2025-06-14 14:27 | Outpatient (BNVA) | payer MEDICARE, OTHER, SELFPAY | PROVIDERS: PCP Internal Medicine; Visit Provider Internal Medicine Rheumatology | DX: M45.9 Ankylosing spondylitis of unspecified sites in spine (principal); M13.80 Other specified arthritis, unspecified site; Z79.899 Other long term (current) drug therapy; Z71.85 Encounter for immunization safety counseling; Z15.89 Genetic susceptibility to other disease; Z79.1 Long term (current) use of non-steroidal anti-inflammatories (NSAID); M24.19 Other articular cartilage disorders, other specified site | CPT/HCPCS: 73562; 99214 ==